=== PATIENT | female | born 1960 | race Caucasian/White ===

== ENCOUNTER 2020-04-30 06:29 | Outpatient (REF) | payer OTHER, SELFPAY ==
[2020-04-30 07:04] LABS: MANUAL DIFF FLAG NO
[2020-04-30 07:27] LABS: Basophils Percent Auto 0.5 % (0-2); Eosinophils Absolute Auto 0.1 X10*3/uL (0.0-0.4); Eosinophils Percent Auto 3.2 % (0-4); Hematocrit 43.6 % (37-47); Hemoglobin 14.1 g/dl (12.0-16.0); Imm Gran Abs Auto 0.01 X10*3/uL (0.00-0.03); Imm Gran Pct Auto 0.3 % (0.0-0.4); Lymphocytes Absolute Auto 1.6 X10*3/uL (1.2-4.9); Lymphocytes Percent Auto 41.9 % (20-40); Mean Corpuscular HGB Conc 32.3 g/dl (31.0-35.0); Mean Corpuscular Volume 89.7 fL (80-98); Mean Platelet Volume 9.6 fL (9.4-12.3); Monocytes Absolute Auto 0.4 X10*3/uL (0.1-1.2); Monocytes Percent Auto 9.9 % (2-11); Neutrophils Absolute Auto 1.7 X10*3/uL (2.0-8.3); Neutrophils Percent Auto 44.2 % (45-73); Platelet Count 234 X10*3/uL (160-400); Red Blood Count 4.86 X10*6/uL (4.20-5.50); Red Cell Distribution Width 13.2 % (11.0-16.0); White Blood Count 3.8 X10*3/uL (4.8-10.8)
[2020-04-30 07:50] LABS: Anion Gap 12 (12-20); Blood Urea Nitrogen 12 mg/dL (9-16); Calcium 9.1 mg/dL (8.4-10.2); Carbon Dioxide 28 mmol/L (22-29); Chloride 106 mmol/L (96-108); Cholesterol 194 mg/dL; Estimated Glomerular Filt Rate > 60; Glucose Fasting 96 mg/dL (60-99); HDL Cholesterol 98 mg/dL; LDL Cholesterol Calculated 87 mg/dl; Potassium 4.6 mmol/l (3.3-5.1); Sodium 141 mmol/L (135-145); Triglycerides 45 mg/dL
== END 2020-04-30 06:30 | disposition home or self-care (01) ==
LOC: HO.LAB 06:29
PROVIDERS: Visit Provider Nurse Practitioner Family
DX: R21 Rash and other nonspecific skin eruption (principal); Z86.39 Personal history of other endocrine, nutritional and metabolic disease
CPT/HCPCS: 36415; 80048; 80061; 85025

== ENCOUNTER 2020-06-07 08:02 | Outpatient (REF) | payer OTHER, SELFPAY ==
--- NOTE | 2020-06-07 08:10 | ECG_ITS ---
Test Reason : CP Blood Pressure : / mmHG Vent. Rate : 080 BPM Atrial Rate : 080 BPM P-R Int : 144 ms QRS Dur : 078 ms QT Int : 362 ms P-R-T Axes : 078 059 069 degrees QTc Int : 417 ms Normal sinus rhythm Right atrial enlargement Borderline ECG No previous ECGs available Referred By: Neida Black Electronically Signed By:JAZMÍN RANGEL MD
== END 2020-06-07 08:03 | disposition home or self-care (01) ==
LOC: HO.LAB 08:02
PROVIDERS: PCP Internal Medicine; Visit Provider Internal Medicine
DX: R07.89 Other chest pain (principal)
CPT/HCPCS: 93005

== ENCOUNTER 2020-06-15 07:08 | Outpatient (REF) | payer OTHER, SELFPAY ==
[2020-06-15 07:56] LABS: MANUAL DIFF FLAG NO
[2020-06-15 08:02] LABS: Basophils Percent Auto 0.9 % (0-2); Eosinophils Absolute Auto 0.1 X10*3/uL (0.0-0.4); Eosinophils Percent Auto 3.6 % (0-4); Hematocrit 42.2 % (37-47); Hemoglobin 13.7 g/dl (12.0-16.0); Imm Gran Abs Auto 0.01 X10*3/uL (0.00-0.03); Imm Gran Pct Auto 0.3 % (0.0-0.4); Lymphocytes Absolute Auto 1.2 X10*3/uL (1.2-4.9); Lymphocytes Percent Auto 37.6 % (20-40); Mean Corpuscular HGB Conc 32.5 g/dl (31.0-35.0); Mean Corpuscular Hemoglobin 28.9 pg (27.0-33.0); Monocytes Absolute Auto 0.3 X10*3/uL (0.1-1.2); Monocytes Percent Auto 9.7 % (2-11); Neutrophils Absolute Auto 1.6 X10*3/uL (2.0-8.3); Neutrophils Percent Auto 47.9 % (45-73); Platelet Count 220 X10*3/uL (160-400); Red Blood Count 4.74 X10*6/uL (4.20-5.50); Red Cell Distribution Width 12.9 % (11.0-16.0); White Blood Count 3.3 X10*3/uL (4.8-10.8)
[2020-06-15 08:28] LABS: Alanine Aminotransferase 24 U/L (0-31); Albumin Level 4.4 g/dL (3.5-5.0); Alkaline Phosphatase 77 U/L (39-117); Anion Gap 12 (12-20); Aspartate Amino Transferase 22 U/L (5-31); Bilirubin Total 0.8 mg/dL (0.0-1.0); Blood Urea Nitrogen 14 mg/dL (9-16); Calcium 9.5 mg/dL (8.4-10.2); Carbon Dioxide 28 mmol/L (22-29); Chloride 106 mmol/L (96-108); Estimated Glomerular Filt Rate > 60; Glucose Fasting 95 mg/dL (60-99); Sodium 141 mmol/L (135-145); Total Protein 7.1 g/dL (6.5-8.0)
[2020-06-18 07:12] LABS: Vitamin D 25-OH, D2 <4 ng/mL; Vitamin D 25-OH, D3 25 ng/mL; Vitamin D 25-OH, Total 25 ng/mL (30-100)
[2020-06-21 04:58] LABS: Folate 18.4 ng/mL (> or = 4.0); Vitamin B12 658 pg/mL (200-900)
== END 2020-06-15 07:09 | disposition home or self-care (01) ==
LOC: HO.LAB 07:08
PROVIDERS: PCP Internal Medicine; Visit Provider Internal Medicine
DX: R42 Dizziness and giddiness (principal); R53.82 Chronic fatigue, unspecified; E55.9 Vitamin D deficiency, unspecified
CPT/HCPCS: 36415; 80053; 82306; 82607; 82746; 84443; 85025

== ENCOUNTER 2020-10-18 08:01 | Outpatient (REF) | payer OTHER, SELFPAY ==
--- NOTE | ~2020-10-18 | MM_ITS ---
EXAMINATION: MM SCREENING DIGITAL BREAST TOMOSYNTHESIS, BILATERAL CLINICAL INFORMATION: Screening. Asymptomatic. The lifetime risk of breast cancer based on the Tyrer-Cuzick Model is 12.0%. COMPARISON: Mammography: January 30, 2016 and studies dating back to August 03, 2009 TECHNIQUE: Digital breast tomosynthesis is performed in both the craniocaudal and mediolateral oblique views along with computer-aided detection (CAD). Synthesized 2D images are generated from the tomosynthesis. FINDINGS: There are scattered areas of fibroglandular density (ACR BI-RADS breast composition Category b). There are no significant masses, abnormal calcifications, or other abnormalities. MM/MM tomosynthesis screening BI IMPRESSION: There are no significant changes from prior study. ASSESSMENT: BI-RADS 1: Negative RECOMMENDATION: Routine annual mammography screening. This patient's information was entered into a reminder system with a target due date for their next mammogram.
== END 2020-10-18 08:02 | disposition home or self-care (01) ==
LOC: HO.MAMMO 08:01
PROVIDERS: PCP Internal Medicine; Visit Provider Obstetrics & Gynecology
DX: Z12.31 Encounter for screening mammogram for malignant neoplasm of breast (principal)
CPT/HCPCS: 77063; 77067

== ENCOUNTER 2020-12-10 12:05 | Outpatient (REF) | payer OTHER, SELFPAY ==
[2020-12-10 12:57] LABS: Hematocrit 41.8 % (37-47); Hemoglobin 13.6 g/dl (12.0-16.0); Mean Corpuscular HGB Conc 32.5 g/dl (31.0-35.0); Mean Corpuscular Hemoglobin 28.9 pg (27.0-33.0); Mean Corpuscular Volume 88.9 fL (80-98); Mean Platelet Volume 9.5 fL (9.4-12.3); Platelet Count 224 X10*3/uL (160-400); Red Cell Distribution Width 13.5 % (11.0-16.0); White Blood Count 5.2 X10*3/uL (4.8-10.8)
[2020-12-10 13:13] LABS: Alanine Aminotransferase 24 U/L (0-31); Albumin Level 4.5 g/dL (3.5-5.0); Alkaline Phosphatase 74 U/L (39-117); Anion Gap 12 (12-20); Aspartate Amino Transferase 22 U/L (5-31); Bilirubin Direct 0.2 mg/dL (0.0-0.5); Bilirubin Total 0.3 mg/dL (0.0-1.0); Blood Urea Nitrogen 18 mg/dL (9-16); Calcium 9.4 mg/dL (8.4-10.2); Carbon Dioxide 27 mmol/L (22-29); Chloride 104 mmol/L (96-108); Estimated Glomerular Filt Rate > 60; Glucose Random 87 mg/dL (60-115); Iron 73 mcg/dL (30-160); Percent Iron Saturation 21 % (15-50); Potassium 4.6 mmol/L (3.3-5.1); Sodium 138 mmol/L (135-145); Total Iron Binding Capacity 353 mcg/dL (228-428); Total Protein 7.1 g/dL (6.5-8.0); Unsaturated Iron Binding 280 ug/dL
== END 2020-12-10 12:06 | disposition home or self-care (01) ==
LOC: HO.LAB 12:05
PROVIDERS: PCP Internal Medicine; Visit Provider Physician Assistant
DX: R42 Dizziness and giddiness (principal); I10 Essential (primary) hypertension; D72.819 Decreased white blood cell count, unspecified; D50.9 Iron deficiency anemia, unspecified
CPT/HCPCS: 36415; 80048; 80076; 83540; 85027

== ENCOUNTER → 2021-01-08 11:15 | Outpatient (REF) | payer OTHER, SELFPAY ==
--- NOTE | 2021-01-08 11:19 | CA_ITS ---
Transthoracic Echocardiogram Patient (Last, First, Middle): Shaniqua Prather, Gender: Female Date of : 1960 Age: 60 Procedure Date: 01/08/2021 Procedure Type: Transthoracic Echocardiogram Location: OP Height: 162.56 cm Weight: 51.71 kg BSA: 1.54 m2 Heart Rate: bpm BP: 120 / 60 mmHg Resource Management Planner: LILLY Pearce MD: Ibrahima Espinal PA-C Recreation Therapy Aides Teacher: Alex Garcia MD Symptoms: I51.7 - Cardiomegaly Study Quality: Fair ECG Rhythm: Sinus Conclusions: - Essentially normal study Findings Left Ventricle Normal left ventricular size, thickness, and systolic function. The visually estimated ejection fraction is between 60-65%. Diastolic function is normal for age. Measured global longitudinal endocardial strain is-17.4%, within normal limits. Right Ventricle Normal right ventricular cavity size and systolic function. Atria Both atria are normal in size. There is no evidence of interatrial shunt. Aortic Valve The aortic valve structure and function is likely normal. There is no aortic valve stenosis. There is no aortic valve regurgitation. Mitral Valve Likely normal mitral valve structure and function. There is trace mitral valve regurgitation. There is no mitral valve stenosis. Pulmonic Valve The pulmonic valve was not well visualized. Tricuspid Valve Likely normal tricuspid valve structure and function. There is trace tricuspid valve regurgitation. The right ventricular systolic pressure is normal. The right ventricular systolic pressure is 21 mmHg. Normal right atrial pressure. There is no evidence of pulmonary hypertension. Great Vessels All visible segments of the aorta are normal in size. The pulmonary artery was not well visualized. Venous The inferior vena cava is normal in size and collapses greater than 50% with inspiration. Pericardium/Pleural There is no evidence of pericardial effusion. Prior Study Comparison No prior study available for comparison. Measurements 2D Linear Measurements IVSd: 0.67 0.6-0.9/0.6-1.0 cm LVIDd: 3.87 3.9-5.3/4.2-5.9 cm LVIDd Index: 2.51 2.4-3.2/2.2-3.1 cm/m2 LVIDs: 2.75 2.0-3.6 cm LVPWd: 0.66 0.7-1.1 cm Ao Root: 3.00 2.1-3.5 cm LA Diam: 2.50 2.7-3.8/3.0-4.0 cm LAIDs Index: 1.62 1.5-2.3 cm/m2 LV Mass: 86.46 67-162/88-224 g LV Mass Index: 56.14 43-95/49-115 g/m2 LVOT Diam: 2.10 3.0+(-)1.3 cm 2D Systolic Function EF 4C: 55.50 >55% EF 2C: 66.50 >55% EF BiP: 61.50 >55% Mitral Valve MV Pk E: 0.54 MV PK A: 0.39 MV Decel Time: 358.00 E/A: 1.40 E'Lateral: 12.00 E'Medial: 8.70 E/E' Med: 6.20 E/E' Lat: 4.50 PHT: 105.00 MVA PHT: 2.10 Decel [place]: 1.49 Aortic Valve AoV Pk Garry: 1.19 AoV Mn Garry: 0.85 AoV VTI: 0.24 AoV Pk Grad: 6.00 Aov Mn Grad: 3.00 DOMINIQUE Cont.VTI: 2.50 LVOT LVOT Pk Garry: 0.72 LVOT Mn Garry: 0.49 LVOT VTI: 0.18 LVOT Pk Grad: 2.00 LVOT Mn Grad: 1.00 LVOT Diam: 2.10 LVOT Area: 3.46 Diastolic Function MV Pk E: 0.54 MV Pk A: 0.39 E/A: 1.40 E'Medial: 8.70 E/E' Med: 6.20 E' Laterial: 12.00 E/E' Lat: 4.50 Right Ventricle TAPSE (mm): 2.15 TVS' Garry: 11.00 Tricuspid Valve TR Pk Garry: 2.13 TR Pk Grad: 18.00 RA Press: 3.00 RVSP: 21.00 Great Vessels Aorta Ao Root-2D: 3.00 2.0-3.7 cm Ao Asc: 3.00 2.1-3.4 cm Ao Arch: 2.80 Updated in Other Vendor System with Status of Final Alex Garcia MD electronically signed on 01/08/2021 1:17:51 PM with status of Final
== END ==
LOC: HO.CARD 11:15
PROVIDERS: Visit Provider Physician Assistant
DX: I51.7 Cardiomegaly (principal)
CPT/HCPCS: 93306

== ENCOUNTER → 2021-01-16 09:02 | Outpatient (BNVA) | payer OTHER, SELFPAY | PROVIDERS: PCP Internal Medicine; Visit Provider Internal Medicine ==

== ENCOUNTER → 2021-06-30 09:13 | Outpatient (REF) | payer OTHER, SELFPAY ==
--- NOTE | 2021-06-30 09:24 | ECG_ITS ---
Test Reason : CP Blood Pressure : / mmHG Vent. Rate : 074 BPM Atrial Rate : 074 BPM P-R Int : 154 ms QRS Dur : 070 ms QT Int : 378 ms P-R-T Axes : 078 046 063 degrees QTc Int : 419 ms Normal sinus rhythm Normal ECG When compared with ECG of 07-JUN-2020 08:19, No significant change was found Referred By: Neida Black Electronically Signed By:JAZMÍN RANGEL MD
[2021-06-30 10:44] LABS: Alanine Aminotransferase 19 U/L (0-31); Albumin Level 4.2 g/dL (3.5-5.0); Alkaline Phosphatase 74 U/L (39-117); Anion Gap 10 (12-20); Aspartate Amino Transferase 21 U/L (5-31); Bilirubin Total 0.5 mg/dL (0.0-1.0); Blood Urea Nitrogen 10 mg/dL (9-16); Calcium 9.2 mg/dL (8.4-10.2); Carbon Dioxide 26 mmol/L (22-29); Chloride 106 mmol/L (96-108); Cholesterol 168 mg/dL; Estimated Glomerular Filt Rate > 60; Glucose Fasting 89 mg/dL (60-99); HDL Cholesterol 82 mg/dL; LDL Cholesterol Calculated 80 mg/dl; Potassium 4.3 mmol/L (3.3-5.1); Sodium 138 mmol/L (135-145); Total Protein 6.8 g/dL (6.5-8.0); Triglycerides 32 mg/dL
[2021-06-30 11:00] LABS: Thyroid Stimulating Hormone 1.54 uIU/mL (0.32-4.0)
[2021-07-04 01:17] LABS: Vitamin D 25-OH, D2 <4 ng/mL; Vitamin D 25-OH, D3 20 ng/mL; Vitamin D 25-OH, Total 20 ng/mL (30-100)
== END ==
LOC: HO.CARD 09:13
PROVIDERS: PCP Internal Medicine; Visit Provider Internal Medicine
DX: R07.9 Chest pain, unspecified (principal); E78.5 Hyperlipidemia, unspecified; E55.9 Vitamin D deficiency, unspecified
CPT/HCPCS: 36415; 80053; 80061; 82306; 84443; 93005

== ENCOUNTER → 2021-07-22 08:06 | Outpatient (REF) | payer OTHER, SELFPAY ==
--- NOTE | 2021-07-22 08:10 | CA_ITS ---
Acquisition Time: 2021-07-22 08:24:02 Total Exercise Time: 00:08:25 Test Indications: CP Medications: SEE CHART Protocol: FELECIA Max HR: 151 BPM 93% of Pred: 161 BPM Max BP: 122/060 mmHG Max Work Load: 10.1 METS Exercise stress test with exercise 8 min 25 sec of Felecia protocol, achieving 93% MPHR, 10.1 METS, without anginal symptoms, with isolated PAC and PVC, with normotensive response to exercise, without EKG changes meeting criteria for ischemia. Test reviewed with Dr Horvath. Referred By: Neida Black Overread By: GARRETT PARIKH
== END ==
LOC: HO.CARD 08:06
PROVIDERS: Visit Provider Internal Medicine
DX: R07.9 Chest pain, unspecified (principal)
CPT/HCPCS: 93017

== ENCOUNTER 2021-09-18 06:40 | Outpatient (REF) | payer OTHER, SELFPAY ==
[2021-09-18 07:26] LABS: Hematocrit 43.9 % (37.0-47.0); Hemoglobin 14.2 g/dl (12.0-16.0); Mean Corpuscular HGB Conc 32.3 g/dl (31.0-35.0); Mean Corpuscular Hemoglobin 28.9 pg (27.0-33.0); Mean Corpuscular Volume 89.2 fL (80.0-98.0); Mean Platelet Volume 9.9 fL (9.4-12.3); Platelet Count 208 X10*3/uL (160-400); Red Blood Count 4.92 X10*6/uL (4.20-5.50); Red Cell Distribution Width 13.2 % (11.0-16.0); White Blood Count 3.5 X10*3/uL (4.8-10.8)
[2021-09-18 07:34] LABS: Estimated Average Glucose 108 mg/dL; Hemoglobin A1c % 5.4 %
[2021-09-18 07:56] LABS: Anion Gap 13 (12-20); Blood Urea Nitrogen 13 mg/dL (9-16); Calcium 9.9 mg/dL (8.4-10.2); Carbon Dioxide 26 mmol/L (22-29); Chloride 107 mmol/L (96-108); Estimated Glomerular Filt Rate > 60; Glucose Random 95 mg/dL (60-115); Potassium 4.9 mmol/L (3.3-5.1); Sodium 141 mmol/L (135-145)
== END 2021-09-18 06:41 | disposition home or self-care (01) ==
LOC: HO.LAB 06:40
PROVIDERS: PCP Internal Medicine; Visit Provider Nurse Practitioner Family
DX: R73.01 Impaired fasting glucose (principal); R42 Dizziness and giddiness
CPT/HCPCS: 36415; 80048; 83036; 85027

== ENCOUNTER 2021-11-27 08:41 | Outpatient (REF) | payer OTHER, SELFPAY ==
[2021-11-27 09:04] LABS: MANUAL DIFF FLAG NO
[2021-11-27 09:42] LABS: Basophils Percent Auto 0.6 % (0-2); Eosinophils Absolute Auto 0.1 X10*3/uL (0.0-0.4); Eosinophils Percent Auto 2.2 % (0-4); Hematocrit 41.8 % (37.0-47.0); Hemoglobin 13.6 g/dl (12.0-16.0); Imm Gran Abs Auto 0.01 X10*3/uL (0.00-0.03); Imm Gran Pct Auto 0.3 % (0.0-0.4); Lymphocytes Absolute Auto 1.2 X10*3/uL (1.2-4.9); Lymphocytes Percent Auto 33.6 % (20-40); Mean Corpuscular HGB Conc 32.5 g/dl (31.0-35.0); Mean Corpuscular Hemoglobin 28.6 pg (27.0-33.0); Mean Corpuscular Volume 87.8 fL (80.0-98.0); Mean Platelet Volume 9.2 fL (9.4-12.3); Monocytes Absolute Auto 0.5 X10*3/uL (0.1-1.2); Monocytes Percent Auto 12.4 % (2-11); Neutrophils Absolute Auto 1.9 x10*3/uL (2.0-8.3); Neutrophils Percent Auto 50.9 % (45-73); Platelet Count 244 X10*3/uL (160-400); Red Blood Count 4.76 X10*6/uL (4.20-5.50); Red Cell Distribution Width 13.6 % (11.0-16.0); White Blood Count 3.6 X10*3/uL (4.8-10.8)
[2021-11-27 10:19] LABS: Anion Gap 14 (12-20); Blood Urea Nitrogen 13 mg/dL (9-16); Carbon Dioxide 27 mmol/L (22-29); Chloride 105 mmol/L (96-108); Estimated Glomerular Filt Rate > 60; Potassium 4.9 mmol/L (3.3-5.1); Sodium 141 mmol/L (135-145)
[2021-11-27 10:20] LABS: Alanine Aminotransferase 39 U/L (0-31); Albumin Level 4.5 g/dL (3.5-5.0); Alkaline Phosphatase 70 U/L (39-117); Aspartate Amino Transferase 27 U/L (5-31); Bilirubin Total 0.7 mg/dL (0.0-1.0); Calcium 9.4 mg/dL (8.4-10.2); Cholesterol 183 mg/dL; Glucose Fasting 91 mg/dL (60-99); HDL Cholesterol 80 mg/dL; LDL Cholesterol Calculated 97 mg/dl; Total Protein 7.1 g/dL (6.5-8.0); Triglycerides 33 mg/dL
== END 2021-11-27 08:42 | disposition home or self-care (01) ==
LOC: HO.LAB 08:41
PROVIDERS: PCP Internal Medicine; Visit Provider Internal Medicine
DX: Z00.00 Encounter for general adult medical examination without abnormal findings (principal); E78.5 Hyperlipidemia, unspecified; E55.9 Vitamin D deficiency, unspecified; D72.819 Decreased white blood cell count, unspecified
CPT/HCPCS: 36415; 80053; 80061; 82306; 85025

== ENCOUNTER 2021-12-05 07:24 | Outpatient (REF) | payer OTHER, SELFPAY ==
--- NOTE | ~2021-12-05 | MM_ITS ---
EXAMINATION: MM SCREENING DIGITAL BREAST TOMOSYNTHESIS, BILATERAL CLINICAL INFORMATION: Screening. Asymptomatic. The lifetime risk of breast cancer based on the Tyrer-Cuzick Model is 8%. COMPARISON: Mammography: 10/18/2020, 01/30/2016, 01/18/2015 TECHNIQUE: Digital breast tomosynthesis is performed in both the craniocaudal and mediolateral oblique views along with computer-aided detection (CAD). Synthesized 2D images are generated from the tomosynthesis. FINDINGS: There are scattered areas of fibroglandular density (ACR BI-RADS breast composition Category b). There are no significant masses, abnormal calcifications, or other abnormalities. Parenchymal pattern is similar to prior studies. Minor bilateral parenchymal asymmetries are stable. There is no developing density. No interval mass or architectural abnormality. The skin contours are smooth. No significant changes from prior exams. MM/MM tomosynthesis screening BI IMPRESSION: No mammographic evidence of malignancy. ASSESSMENT: BI-RADS 2: Benign RECOMMENDATION: Routine annual mammography screening. This patient's information was entered into a reminder system with a target due date for their next mammogram.
== END 2021-12-05 07:25 | disposition home or self-care (01) ==
LOC: HO.MAMMO 07:24
PROVIDERS: PCP Internal Medicine; Visit Provider Internal Medicine
DX: Z12.31 Encounter for screening mammogram for malignant neoplasm of breast (principal)
CPT/HCPCS: 77063; 77067

== ENCOUNTER 2021-12-18 06:58 | Outpatient (REF) | payer OTHER, SELFPAY ==
[2021-12-18 07:57] LABS: Alanine Aminotransferase 21 U/L (0-31); Albumin Level 4.3 g/dL (3.5-5.0); Alkaline Phosphatase 69 U/L (39-117); Aspartate Amino Transferase 22 U/L (5-31); Bilirubin Direct 0.3 mg/dL (0.0-0.5); Bilirubin Total 0.8 mg/dL (0.0-1.0); Total Protein 6.9 g/dL (6.5-8.0)
== END 2021-12-18 06:59 | disposition home or self-care (01) ==
LOC: HO.LAB 06:58
PROVIDERS: PCP Internal Medicine; Visit Provider Internal Medicine
DX: R74.01 Elevation of levels of liver transaminase levels (principal)
CPT/HCPCS: 36415; 80076

== ENCOUNTER 2022-04-01 13:10 | Outpatient (REF) | payer OTHER, SELFPAY ==
[2022-04-01 14:51] LABS: Alanine Aminotransferase 23 U/L (0-31); Albumin Level 4.6 g/dL (3.5-5.0); Alkaline Phosphatase 78 U/L (39-117); Aspartate Amino Transferase 21 U/L (5-31); Bilirubin Direct 0.3 mg/dL (0.0-0.5); Bilirubin Total 0.6 mg/dL (0.0-1.0); Lipase 19 U/L (8-78); Total Protein 7.2 g/dL (6.5-8.0)
[2022-04-02 19:48] LABS: Transglutaminase Ab IgG <1.0 U/mL; Transglutaminase IgA <1.0 U/mL
== END 2022-04-01 13:11 | disposition home or self-care (01) ==
LOC: HO.LAB 13:10
PROVIDERS: PCP Internal Medicine; Visit Provider Nurse Practitioner Family
DX: R10.9 Unspecified abdominal pain (principal)
CPT/HCPCS: 36415; 80076; 83690; 86364

== ENCOUNTER 2022-04-02 12:01 | Outpatient (REF) | payer OTHER, SELFPAY ==
[2022-04-09 12:58] LABS: Pancreatic Elastase-1 >500 mcg/g
== END 2022-04-02 12:02 | disposition home or self-care (01) ==
LOC: HO.LNP 12:01
PROVIDERS: Visit Provider Nurse Practitioner Family
DX: R10.9 Unspecified abdominal pain (principal)
CPT/HCPCS: 82656

== ENCOUNTER 2022-05-11 07:21 | Outpatient (REF) | payer OTHER, SELFPAY ==
--- NOTE | ~2022-05-11 | US_ITS ---
EXAMINATION: US ABDOMEN COMPLETE CLINICAL INFORMATION: Unspecified abdominal pain. COMPARISON: CT abdomen and pelvis with contrast 07/13/2016. TECHNIQUE: Real-time imaging of the abdominal viscera. FINDINGS: PANCREAS: Visualized pancreas is normal. ABDOMINAL AORTA: The proximal, mid, and distal segments are normal in caliber. INFERIOR VENA CAVA: Visualized portions are normal. LIVER: Normal. The liver is normal in size. The liver contour is normal. Parenchymal echogenicity is normal. No focal hepatic lesion. There is no intrahepatic biliary duct dilatation seen. GALLBLADDER: Normal. The gallbladder is physiologically distended without evidence of stones, sludge, polyps, wall thickening or pericholecystic fluid. COMMON BILE DUCT: Normal in caliber measuring 0.2 cm in diameter. RIGHT KIDNEY: Incidentally noted right extrarenal pelvis. No hydronephrosis. No renal calculi or focal parenchymal lesions. The kidney measures 9.4 cm in maximum dimension. LEFT KIDNEY: Normal. No hydronephrosis. No renal calculi or focal parenchymal lesions. The kidney measures 9.6 cm in maximum dimension. SPLEEN: Normal. The spleen measures 7.8 cm in maximum dimension. FREE FLUID: None. US/US abdomen complete IMPRESSION: No etiology for abdominal pain identified.
== END 2022-05-11 07:22 | disposition home or self-care (01) ==
LOC: HO.US 07:21
PROVIDERS: PCP Internal Medicine; Visit Provider Nurse Practitioner Family
DX: R10.9 Unspecified abdominal pain (principal)
CPT/HCPCS: 76700

== ENCOUNTER → 2022-05-12 13:47 | Outpatient (BNVA) | payer OTHER, SELFPAY | PROVIDERS: PCP Internal Medicine; Visit Provider Nurse Practitioner Family | DX: R74.01 Elevation of levels of liver transaminase levels (principal) ==

== ENCOUNTER 2022-11-13 15:21 | Outpatient (AMB) | payer OTHER, SELFPAY ==
--- NOTE | 2022-11-13 15:25 | A.OFFVIS_ITS ---
Intake Vital Signs 11/13/22 15:26 Height 5 ft 4 in Weight 110 lb BMI 18.9 BP 105/60 Blood Pressure Location Lt brachial Position Sitting Pulse 73 Intake Visit Reasons: 6 months f/u re-discuss colonoscopy Intake Note: Patient follow up for re-discuss colonoscopy screening. Patient cc: dizziness and denies any other GI issues. Zigzag Elastic Attacher Required: No Accompanied by: Self / Same As Patient Allergies ciprofloxacin [Cipro] Allergy (Intermediate, Verified 11/13/22 15:25) numbness Sulfa (Sulfonamide Antibiotics) [SULFA (SULFONAMIDE ANTIBIOTICS)] Allergy (Intermediate, Verified 11/13/22 15:25) RASH HPI 6 months f/u re-discuss colonoscopy HPI Details LAST VISIT: Transaminitis Liver enzymes levels have normalized. Patient his change her diet. Her ultrasound was normal, showing normal liver for Abdominal pain Patient reports that she has been feeling better since she started low FODMAP diet. Patient can continue this diet. She states that she moves her bowels well. Denies any melena, hematochezia, unintentional weight loss or ribbon like stools. Abdominal bloating Occasional abdominal bloating, however patient reports that she is feeling much better since the last time I saw her. Diet helps. Patient had colonoscopy in August of 2013. No polyps found then. Patient should probably go for colonoscopy within the year. I will see her in 6 months, sooner on as needed basis. Will discuss going for colonoscopy done. Patient is agreeable to this plan and verbalizes understanding of instructions. She was given the opportunity to ask questions all questions answered. TODAY'S VISIT Patient is here today for follow-up. Patient reports that she has been feeling well for the most part. Patient denies any GI concerning symptoms. Reports that she moves her bowels well, denies melena, hematochezia, unintentional weight loss or ribbon like stools. Patient denies dyspepsia, dysphagia or odynophagia. Patient does however reports to be feeling dizzy occasionally in attached feeling of weakness. Patient does have a low blood pressure. Reports that she is good drinking enough water. Patient denies any shortness of breath, chest pain, presyncope or syncope. Patient reports to have good appetite. Patient denies skipping meals. ? [facility] Medical History Chest pain Chest wall pain Chronic fatigue Chronic leukopenia Dizziness History of high cholesterol Hypotension Rash and nonspecific skin eruption Surgical History H/O colonoscopy H/O resection of small bowel History of myomectomy History of reversal of tubal ligation History of tubal ligation Family History Father No problems noted. Mother Diabetes Breast cancer Maternal Grandmother Diabetes Cancer Sister Ovarian cancer Family/Other FH: mental illness Maternal Grandfather Myocardial infarction Paternal Grandfather Medical history unknown Paternal Grandmother No problems noted. 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 [employer] Current occupational exposures/hazards: No Cognitive needs: No Hearing needs: No Vision needs: Yes Review of Systems Const Reports fatigue, Reports weakness (Occasional with occasional dizziness), Denies weight gain and Denies weight loss ENT Reports no additional complaints, Denies dysphagia and Denies odynophagia Card Reports no additional complaints Resp Reports no additional complaints GI Denies abdominal pain, Denies belching, Denies melena, Denies bloating, Denies change in bowel habits, Denies dysphagia, Denies excessive flatus, Denies dyspepsia, Denies heartburn, Denies diarrhea, Denies loose stools, Denies nausea, Denies odynophagia and Denies vomiting Musc Reports no additional complaints Neuro Reports no additional complaints and Reports weakness (Occasional with occasional dizziness) Psych Reports no additional complaints Endo Reports no additional complaints and Reports fatigue Physical Exam Vital Signs: Last Vital Signs Pulse 73 11/13/22 15:26 BP 105/60 11/13/22 15:26 BMI result Body Mass Index 18.9 Const General: healthy appearing, no acute distress and well developed Nutritional Appearance: well nourished Orientation/consciousness: patient oriented x3 HEENT Head: Yes normal to inspection, Yes normocephalic and Yes atraumatic Face and sinus: Yes normal facial exam Mouth: Normal oral and palatal mucosa present Throat: Yes posterior oropharynx normal, Yes tonsils normal and Yes uvula midline Eyes General: appearance normal, both eyes and all related structures Neck Neck: Yes normal visual inspection, Yes full ROM and Yes trachea midline Thyroid: Thyroid normal Resp Effort & Inspection: normal respiratory effort, able to speak in complete sentences, no tracheal deviation and symmetric chest movement Auscultation: clear to auscultation bilaterally Cardio Rate: regular rate Heart sounds: S1 normal heart sound present and S2 normal heart sound present GI Inspection: Yes normal to inspection and No distended Palpation (GI): Soft to palpation, not firm, nontender and No hepatosplenomegaly present Auscultation: normal bowel sounds General: Yes no CVA tenderness Back/Spine/Pelvis Back: no CVA tenderness Skin General skin exam: elasticity normal, turgor normal and dry skin Neuro General: patient oriented x3, gait normal, moves all extremities and Normal light touch and pain sensation Psych Appearance: grossly normal Mental Status: mental status grossly normal Speech and movement: Normal speech and movement present Assessment & Plan Assessment & Plan (1) Dizziness: Code(s): R42 - Dizziness and giddiness Plan: Patient has normal blood pressure. Denies feeling dizzy today. Patient was encouraged to making sure that she drinks plenty fluids and eats more often. Will do A1c level check CMP, CBC, thyroid (2) Abdominal bloating: Code(s): R14.0 - Abdominal distension (gaseous) Plan: Patient reports that she feels better moves her bowels well. Denies any abdominal bloating. Patient will return in 5 weeks to discuss colonoscopy. Patient is agreeable to this plan and verbalizes understanding of instructions. She was given the opportunity to ask questions and all questions answered. Thank you for allowing me to participate in her care Orders: Orders Comprehensive Met. Panel 11/13/22 R42 - Dizziness and giddiness TSH reflex Free T4 11/13/22 R42 - Dizziness and giddiness Complete Blood Count no Diff 11/13/22 R42 - Dizziness and giddiness Hemoglobin A1c 11/13/22 R42 - Dizziness and giddiness Coding Level of Care Code Est Pt Level 3 (22589) Diagnoses Dizziness R42 Abdominal bloating R14.0 Time Spent (min) 30 Comment 20 minutes spent with patient and additional 15 minutes spent reviewing her records
[2022-11-13 15:26] VITALS: BP 105/60; PULSE 73; BMI 18.9
== END 2022-11-13 16:04 | disposition home or self-care (01) ==
PROVIDERS: Visit Provider Nurse Practitioner Family
DX: R42 Dizziness and giddiness (principal); R14.0 Abdominal distension (gaseous)
CPT/HCPCS: 99213

== ENCOUNTER 2022-11-13 15:21 | Outpatient (REF) | payer OTHER, SELFPAY ==
[2022-11-13 17:51] LABS: Hematocrit 43.4 % (37.0-47.0); Hemoglobin 14.2 g/dl (12.0-16.0); Mean Corpuscular HGB Conc 32.7 g/dl (31.0-35.0); Mean Corpuscular Volume 88.6 fL (80.0-98.0); Mean Platelet Volume 9.7 fL (9.4-12.3); Platelet Count 215 X10*3/uL (160-400); Red Cell Distribution Width 13.3 % (11.0-16.0); White Blood Count 5.1 X10*3/uL (4.8-10.8)
[2022-11-13 18:08] LABS: Estimated Average Glucose 103 mg/dL; Hemoglobin A1c % 5.2 %
[2022-11-13 18:28] LABS: Alanine Aminotransferase 22 U/L (0-31); Albumin Level 4.5 g/dL (3.5-5.0); Alkaline Phosphatase 82 U/L (39-117); Anion Gap 11 (12-20); Aspartate Amino Transferase 21 U/L (5-31); Bilirubin Total 0.3 mg/dL (0.0-1.0); Blood Urea Nitrogen 17 mg/dL (9-16); Calcium 9.7 mg/dL (8.4-10.2); Carbon Dioxide 27 mmol/L (22-29); Chloride 103 mmol/L (96-108); Estimated Glomerular Filt Rate > 60; Glucose Random 84 mg/dL (60-115); Potassium 4.4 mmol/L (3.3-5.1); Sodium 137 mmol/L (135-145); Total Protein 7.3 g/dL (6.5-8.0)
[2022-11-13 18:36] LABS: TSH reflex Free T4 1.55 uIU/mL (0.32-4.0)
== END 2022-11-13 15:22 | disposition home or self-care (01) ==
LOC: HO.LAB 15:21
PROVIDERS: PCP Internal Medicine; Visit Provider Nurse Practitioner Family
DX: R42 Dizziness and giddiness (principal); R53.1 Weakness
CPT/HCPCS: 36415; 80053; 83036; 84443; 85027

== ENCOUNTER 2022-12-09 08:04 | Outpatient (AMB) | payer OTHER, SELFPAY ==
[2022-12-09 08:09] VITALS: BP 104/58; PULSE 75; O2SAT 98; BMI 18.9
--- NOTE | 2022-12-09 08:09 | A.OFFPC_ITS ---
Vital Signs 12/09/22 08:09 Height 5 ft 4 in Weight 110 lb BMI 18.9 BP 104/58 L Blood Pressure Location Lt brachial Position Sitting Pulse 75 Pulse Source Pulse Oximeter Pulse Oximetry (%) 98 Oxygen Delivery Method Room Air Intake Visit Reasons: Annual Exam Director Recreation Required: No Accompanied by: Self / Same As Patient Allergies ciprofloxacin [Cipro] Allergy (Intermediate, Verified 12/09/22 08:33) numbness Sulfa (Sulfonamide Antibiotics) [SULFA (SULFONAMIDE ANTIBIOTICS)] Allergy (Intermediate, Verified 12/09/22 08:33) RASH Medication List - Last Reconciled 12/09/22 by Neida Black MD multivitamin 1 tab PO DAILY Tobacco use date assessed: 09/08/22 Dental Screening Dental Screen Date: 12/09/22 Did you have a dental visit in the last 12 months?: Yes Did you have a dental problem in the last 6 months where you did not have access to dental care?: No Was dental information given to patient?: Patient has dentist HPI HPI Comments History of Present Illness Details This is a 62-year-old female that comes for her physical exam. Last mammogram was November 2021 and I will order another mammogram. Last bone density was over 3 years ago and showed osteopenia at [facility]. I will repeat bone density. Last colonoscopy was over 10 years ago. She has not changed her diet in over a year and last lipid panel was within normal limits. Last labs were discussed and were within normal limits. No need to order labs at the moment. No chest pain or shortness of breath. Constipation has markedly improved with high-fiber diet. She will call [facility] for a Pap smear. [facility] Medical History (Updated 09/08/22 @ 09:02 by Neida Black MD) Chest pain Chest wall pain Chronic fatigue Chronic leukopenia Dizziness History of high cholesterol Hypotension Rash and nonspecific skin eruption Surgical History H/O colonoscopy H/O resection of small bowel History of myomectomy History of reversal of tubal ligation History of tubal ligation Family History Father No problems noted. Mother Diabetes Breast cancer Maternal Grandmother Diabetes Cancer Sister Ovarian cancer Family/Other FH: mental illness Maternal Grandfather Myocardial infarction Paternal Grandfather Medical history unknown Paternal Grandmother No problems noted. 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 1. Little interest or pleasure in doing things: not at all 2. Feeling down, depressed, or hopeless: not at all 3. Trouble falling or staying asleep, or sleeping too much: not at all 4. Feeling tired or having little energy: not at all 5. Poor appetite or overeating: not at all 6. Feeling bad about yourself - or that you are a failure or have let yourself or your family down: not at all 7. Trouble concentrating on things, such as reading the newspaper or watching television: not at all 8. Moving or speaking so slowly that other people could have noticed. Or the opposite - being so fidgety or restless that you have been moving around a lot more than usual: not at all 9. Thoughts that you would be better off or of hurting yourself in some way: not at all Total score: 0 Depression Screening Interpretation: Negative 39095 - PHQ-9 Billing: Yes Source: Developed by Drs. Herrera Rodriguez, Michelle Santiago, Liborio Dexter and colleagues, with an educational sheree from [employer]. Thrive Questionnaire Date Thrive assessed: 09/08/22 AUDIT C Alcohol Use Questionnaire (AUDIT-C) 1. How often do you have a drink containing alcohol?: Monthly or less 2. How many drinks containing alcohol do you have on a typical day when you are drinking?: 1 or 2 3. How often do you have six or more drinks on one occasion?: Never Total Score: 1 Score Reviewed/Action Taken: No NESSA-7 AMB Questionnaire NESSA-7 Date NESSA - 7 assessed: 09/08/22 Source: Developed by Drs. Herrera Rodriguez, Michelle Santiago, Liborio Dexter and colleagues, with an educational sheree from [employer]. Review of Systems Const All systems reviewed & are unremarkable except as noted in HPI and below Eyes Reports no additional complaints, Denies change in vision and Denies other visual disturbances Card Denies chest pain at rest, Denies chest pain with activity, Denies edema, Denies irregular heart rhythm, Denies claudication, Denies dyspnea, Denies dyspnea on exertion, Denies orthopnea, Denies paroxysmal nocturnal dyspnea and Denies slow heart rate Resp Denies cough, Denies dyspnea and Denies dyspnea on exertion GI Denies abdominal pain, Denies change in bowel habits, Denies excessive flatus, Denies nausea and Denies vomiting Denies urinary incontinence, Denies urinary hesitancy and Denies urinary urgency Musc Denies abnormal gait, Denies atrophy, Denies deformity and Denies limited range of motion Skin/Breast Denies bleeding lesions, Denies changing lesions and Denies rash Neuro Denies abnormal gait and Denies lack of coordination Physical exam (Primary Care) Vital Signs: Last Vital Signs Pulse 75 12/09/22 08:09 BP 104/58 L 12/09/22 08:09 Pulse Ox 98 12/09/22 08:09 Oxygen Delivery Method Room Air 12/09/22 08:09 BMI result Body Mass Index 18.9 Tobacco/Smoking Status: Tobacco use Status Tobacco use date assessed 09/08/22 12/09/22 08:12 Patient Tobacco Use Status Never used Tobacco 12/09/22 08:12 e-Cigarette/Vaping Use Never Used 12/09/22 08:12 PHQ-9: PHQ-9 Score PHQ-9: Total score 0 12/09/22 08:12 Depression Screening Interpretation: Negative Thrive Assessment: Date of Thrive Assessment Date Thrive assessed 09/08/22 12/09/22 08:12 Const Orientation/consciousness: patient oriented x3 HENMT Head: Yes normal to inspection, Yes normocephalic and Yes atraumatic Ears: external ears normal Eyes General: appearance normal, both eyes and all related structures Eyelids: Yes eyelids normal Conjunctivae: conjunctivae normal Neck Neck: Yes normal visual inspection and Yes supple Resp Effort & Inspection: normal respiratory effort Auscultation: clear to auscultation bilaterally Cardio Jugular venous distension: no JVD Rate: regular rate Rhythm: regular rhythm Heart sounds: S1 normal heart sound present and S2 normal heart sound present GI Inspection: Yes normal to inspection Palpation (GI): Soft to palpation and nontender Auscultation: normal bowel sounds Skin General skin exam: no rashes or lesions noted Neuro General: patient oriented x3 and no focal motor deficits Extrem General: Yes full ROM Psych Appearance: grossly normal Assessment and Plan Assessment & Plan (1) Physical exam: Code(s): Z00.00 - Encounter for general adult medical examination without abnormal findings Plan: Repeat in a year Orders: Orders XR DEXA axial skeleton Today N95.9 - Unspecified menopausal and perimenopausal disorder MM screening mammo BI Today Z12.31 - Encounter for screening mammogram for malignant neoplasm of breast Coding Level of Care Code Est Pt Prev Care 40-64y(10548) Diagnoses Physical exam Z00.00 Time Spent (min) 33
== END 2022-12-09 08:47 | disposition home or self-care (01) ==
PROVIDERS: PCP Internal Medicine; Visit Provider Internal Medicine
DX: Z00.00 Encounter for general adult medical examination without abnormal findings (principal)
CPT/HCPCS: 99396

== ENCOUNTER 2022-12-11 10:38 | Outpatient (AMB) | payer OTHER, SELFPAY ==
--- NOTE | 2022-12-11 10:52 | A.OFFVIS_ITS ---
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 Denies feeling dizzy today. Patient was encouraged to making sure that she drinks plenty fluids and eats more often. Will do A1c level check CMP, CBC, thyroid Abdominal bloating Patient reports that she feels better moves her bowels well. Denies any abdominal bloating. Patient will return in 5 weeks to discuss colonoscopy. Patient is agreeable to this plan and verbalizes understanding of instructions. She was given the opportunity to ask questions and all questions answered. ? Thank you for allowing me to participate in her care Plan Orders Orders Comprehensive Met. Panel 11/13/22 R42 TSH reflex Free T4 11/13/22 R42 Complete Blood Count no Diff 11/13/22 R42 Hemoglobin A1c 11/13/22 R42 TODAY'S VISIT: Patient is here today for follow-up and to discuss go went for colonoscopy. Patient denies any ill effects from anesthesia in the past. No history of sleep apnea. Not on any anticoagulation medication. All her blood work discussed with patient and normal. Patient denies any cardiac or respiratory symptoms. Patient had normal colonoscopy in 2013. Patient denies any melena, hematochezia, unintentional weight loss or ribbon like stools. Patient denies any dyspepsia, dysphagia or odynophagia. [facility] Medical History Chest pain Chest wall pain Chronic fatigue Chronic leukopenia Dizziness History of high cholesterol Hypotension Rash and nonspecific skin eruption Surgical History H/O colonoscopy H/O resection of small bowel History of myomectomy History of reversal of tubal ligation History of tubal ligation Family History Father No problems noted. Mother Diabetes Breast cancer Maternal Grandmother Diabetes Cancer Sister Ovarian cancer Family/Other FH: mental illness Maternal Grandfather Myocardial infarction Paternal Grandfather Medical history unknown Paternal Grandmother No problems noted. 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 Current occupational exposures/hazards: No Cognitive needs: No Hearing needs: No Vision needs: Yes Review of Systems Const Denies weight gain and Denies weight loss ENT Reports no additional complaints, Denies dysphagia and Denies odynophagia Card Reports no additional complaints Resp Reports no additional complaints GI Denies abdominal pain, Denies belching, Denies melena, Denies bloating, Denies change in bowel habits, Denies dysphagia, Denies excessive flatus, Denies dyspepsia, Denies heartburn, Denies diarrhea, Denies loose stools, Denies nausea, Denies odynophagia and Denies vomiting Musc Reports no additional complaints Neuro Reports no additional complaints Psych Reports no additional complaints Endo Reports no additional complaints Physical Exam Vital Signs: Last Vital Signs Pulse 79 12/11/22 10:53 BP 103/55 L 12/11/22 11:27 BMI result Body Mass Index 18.8 Const General: healthy appearing, no acute distress and well developed Nutritional Appearance: well nourished Orientation/consciousness: patient oriented x3 HEENT Head: Yes normal to inspection, Yes normocephalic and Yes atraumatic Face and sinus: Yes normal facial exam Mouth: Normal oral and palatal mucosa present Throat: Yes posterior oropharynx normal, Yes tonsils normal and Yes uvula midline Eyes General: appearance normal, both eyes and all related structures Neck Neck: Yes normal visual inspection, Yes full ROM and Yes trachea midline Thyroid: Thyroid normal Resp Effort & Inspection: normal respiratory effort, able to speak in complete sentences, no tracheal deviation and symmetric chest movement Auscultation: clear to auscultation bilaterally Cardio Rate: regular rate Heart sounds: S1 normal heart sound present and S2 normal heart sound present GI Inspection: Yes normal to inspection and No distended Palpation (GI): Soft to palpation, not firm, nontender and No hepatosplenomegaly present Auscultation: normal bowel sounds General: Yes no CVA tenderness Back/Spine/Pelvis Back: no CVA tenderness Skin General skin exam: elasticity normal, turgor normal and dry skin Neuro General: patient oriented x3 Psych Appearance: grossly normal Mental Status: mental status grossly normal Speech and movement: Normal speech and movement present Assessment & Plan Assessment & Plan (1) Screen for colon cancer: Code(s): Z12.11 - Encounter for screening for malignant neoplasm of colon Plan: Patient denies any cardiac or respiratory symptoms. No issues with anesthesia in the past. No history of sleep apnea. Not on any anticoagulation medication. Denies any infectious diseases in the past or present. Discussed with patient what to expect before during and after the procedure. Clear liquid diet and good bowel prep discussed with patient. I will see her after the procedure, sooner on as needed basis. Patient is agreeable to this plan and verbalizes understanding of instructions. She was given the opportunity to ask questions and all questions answered. Thank you for allowing me to participate in her care Medications: New bisacodyl (Dulcolax (bisacodyl)) take 2 tabs at noon the day before your colonoscopy 10 mg (2 x 5 mg) PO ONCE 2 tabs 0RF 1 day Z12.11 - Encounter for screening for malignant neoplasm of colon polyethylene glycol 3350 (Miralax) As directed by gastroenterology department at [facility] 238 grams PO ONCE 238 grams 0RF Z12.11 - Encounter for screening for malignant neoplasm of colon Coding Level of Care Code Est Pt Level 3 (50279) Diagnoses Screen for colon cancer Z12.11 Time Spent (min) 30 Comment 20 minutes spent with patient and additional 10 minutes spent reviewing her records
[2022-12-11 10:53] VITALS: BP 90/54; PULSE 79; BMI 18.8
[2022-12-11 11:27] VITALS: BP 103/55
== END 2022-12-11 11:43 | disposition home or self-care (01) ==
PROVIDERS: PCP Internal Medicine; Visit Provider Nurse Practitioner Family
DX: Z12.11 Encounter for screening for malignant neoplasm of colon (principal); Z01.818 Encounter for other preprocedural examination
CPT/HCPCS: 99213

== ENCOUNTER → 2022-12-11 10:38 | Outpatient (BNVA) | payer OTHER, SELFPAY | PROVIDERS: PCP Internal Medicine; Visit Provider Nurse Practitioner Family ==

== ENCOUNTER 2023-01-15 08:17 | Outpatient (REF) | payer OTHER, SELFPAY ==
--- NOTE | ~2023-01-15 | MM_ITS ---
EXAMINATION: MM SCREENING DIGITAL BREAST TOMOSYNTHESIS, BILATERAL CLINICAL INFORMATION: Screening. Asymptomatic. COMPARISON: Mammography: This study is compared with prior exams dating back to 2016. TECHNIQUE: Digital breast tomosynthesis is performed in both the craniocaudal and mediolateral oblique views along with computer-aided detection (CAD). Synthesized 2D images are generated from the tomosynthesis. FINDINGS: The breasts are heterogeneously dense, which may obscure small masses (ACR BI-RADS breast composition Category c). There is a retroareolar asymmetry for which additional mammographic imaging is advised. Sonography may be performed at the discretion of the diagnostic radiologist. In the right breast, there are no significant masses, abnormal calcifications, or other abnormalities. MM/MM tomosynthesis screening BI IMPRESSION: Left retroareolar asymmetry warrants additional mammographic imaging. No mammographic signs of malignancy right breast. ASSESSMENT: BI-RADS BI-RADS 0 - Incomplete: Needs additional Imaging. RECOMMENDATION: 1. Additional views of the left breast. 2. Targeted ultrasound if warranted after review of the additional views. 3. Radiology department staff will contact the patient for additional imaging. Additional Imaging required This examination should not preclude the clinical evaluation of a suspicious palpable abnormality. This patient's information was entered into a reminder system with a target due date for their next mammogram.
--- NOTE | ~2023-01-15 | MM_ITS ---
EXAMINATION: BONE DENSITOMETRY CLINICAL INDICATION: Menopause. COMPARISON: Baseline BD dated 05/10/2012. TECHNIQUE: Using a [employer] DXA System (software version: 13.1) manufactured by [employer], dual-energy x-ray absorptiometry was performed of the lumbar spine and left hip. The images are of good technical quality. Summary results are attached. FINDINGS: LEFT FEMUR, NECK: Current: BMD 0.721 g/cm2, Z-score -0.8, T-score -2.3, osteopenia. Baseline: BMD 0.918 g/cm2. LEFT FEMUR, TOTAL: Current: BMD 0.687 g/cm2, Z-score -1.3, T-score -2.5, osteoporosis, 25.9% decrease from baseline (<5% change is not significant). Baseline: BMD 0.927 g/cm2. AP SPINE L1-L4: Current: BMD 0.919 g/cm2, Z-score -0.5, T-score -2.2, osteopenia, 21.5% decrease from baseline (<5% change is not significant). Baseline: BMD 1.171 g/cm2. IDENTIFIED RISK FACTORS: Menopause, low body weight. HISTORY OF FRACTURE: None listed. MEDICATIONS: None listed. MM/XR DEXA axial skeleton IMPRESSION: 1. DIAGNOSIS: Osteoporosis based on the lowest T-score value of -2.5 in the total femur applying World Health Organization criteria. 2. 10-YEAR FRACTURE RISK PREDICTION, FRAX: According to the guidelines, FRAX calculation should only be performed on patients in the osteopenia bone density category. Therefore, FRAX was not performed on this patient. 3. Treatment Recommendations: NOF guidelines recommend consideration for treatment in postmenopausal women and men age 50 and older presenting with the following: -A hip or vertebral (clinical or morphometric) fracture. -T-score less than or equal to -2.5 at the femoral neck or spine after appropriate evaluation to exclude secondary causes. -Low bone mass at the hip or spine and a 10-year fracture probability by FRAX of greater than or equal to 3% for hip fracture or greater than or equal to 20% for major osteoporotic fracture based on the [place] adapted WHO algorithm. 4. Other Recommendations: All treatment decisions require clinical judgment and consideration of individual patient factors, including patient preferences, comorbidities, previous drug use, risk factors not captured in the FRAX model (e.g. frailty, falls, vitamin D deficiency, increased bone turnover, interval significant decline in bone density) and possible under or overestimation of fracture risk by FRAX. Additional medical evaluation for secondary cause of low bone mineral density may be appropriate. FUTURE SCAN RECOMMENDATION: People with diagnosed cases of osteoporosis or at high risk for fracture should have regular bone mineral density tests. For patients eligible for Medicare, routine testing is allowed once every 2 years. The testing frequency can be increased to one year for patients who have rapidly progressing disease, those who are receiving or discontinuing medical therapy to restore bone mass, or have additional risk factors.
== END 2023-01-15 08:18 | disposition home or self-care (01) ==
LOC: HO.MAMMO 08:17
PROVIDERS: PCP Internal Medicine; Visit Provider Internal Medicine
DX: Z12.31 Encounter for screening mammogram for malignant neoplasm of breast (principal); Z13.820 Encounter for screening for osteoporosis; Z78.0 Asymptomatic menopausal state
CPT/HCPCS: 77063; 77067; 77080

== ENCOUNTER → 2023-01-15 08:45 | Outpatient (BNV) | payer OTHER, SELFPAY | PROVIDERS: PCP Internal Medicine; Visit Provider Radiology Diagnostic Radiology | DX: Z12.31 Encounter for screening mammogram for malignant neoplasm of breast (principal) | CPT/HCPCS: 77063; 77067 ==

== ENCOUNTER 2023-02-10 08:13 | Outpatient (REF) | payer OTHER, SELFPAY ==
--- NOTE | ~2023-02-10 | MM_ITS ---
EXAMINATION: MM DIAGNOSTIC DIGITAL BREAST TOMOSYNTHESIS, LEFT CLINICAL INFORMATION: Callback for retroareolar asymmetry. COMPARISON: Mammography: 01/15/2023, and exams dating back to 2013. TECHNIQUE: Digital breast tomosynthesis is performed. 2D images are generated from the tomosynthesis. The following views are obtained: Left 3-D full-field mediolateral view, as well as a left 3-D spot compression MLO view. FINDINGS: There are scattered areas of fibroglandular density (ACR BI-RADS breast composition Category b). The retroareolar asymmetry seen on the left MLO projection does not persist on the mediolateral projection, and otherwise has a stable appearance from studies dating back to 07/10/2013. No correlate on the CC projection. Asymmetry in the left axillary tail region is also stable from those examinations. MM/MM tomosynthesis added views L IMPRESSION: No evidence of malignancy left breast. Left retroareolar asymmetry has been stable dating back to 2013, and is consistent with summation artifact of overlapping breast tissues. Recommend the patient return to routine screening mammography. ASSESSMENT: BI-RADS BI-RADS 1 - Negative RECOMMENDATION: 1 year F/U Results were provided to the patient at time of visit by the technologist. This patient's information was entered into a reminder system with a target due date for their next mammogram.
== END 2023-02-10 08:14 | disposition home or self-care (01) ==
LOC: HO.MAMMO 08:13
PROVIDERS: Visit Provider Internal Medicine
DX: N64.89 Other specified disorders of breast (principal)
CPT/HCPCS: 77061; 77065

== ENCOUNTER → 2023-02-10 08:30 | Outpatient (BNV) | payer OTHER, SELFPAY | PROVIDERS: Visit Provider Radiology Diagnostic Radiology | DX: R92.323 Mammographic fibroglandular density, bilateral breasts (principal) | CPT/HCPCS: 77061; 77065 ==

== ENCOUNTER 2023-04-08 10:10 | Outpatient (AMB) | payer OTHER, SELFPAY ==
[2023-04-08 10:14] VITALS: BP 110/80; PULSE 69; O2SAT 99; BMI 19.3
--- NOTE | 2023-04-08 10:14 | A.OFFPC_ITS ---
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 by: Self / Same As Patient Allergies ciprofloxacin [Cipro] Allergy (Intermediate, Verified 04/08/23 11:14) numbness Sulfa (Sulfonamide Antibiotics) [SULFA (SULFONAMIDE ANTIBIOTICS)] Allergy (Intermediate, Verified 04/08/23 11:14) RASH Medication List - Last Reconciled 04/08/23 by Danilo Thompson MD amoxicillin-pot clavulanate 875-125 mg 1 tab PO BID 7 days bisacodyl (Dulcolax (bisacodyl)) 10 mg (2 x 5 mg) PO ONCE 1 day polyethylene glycol 3350 (Miralax) 238 grams PO ONCE Tobacco use date assessed: 04/08/23 Dental Screening Dental Screen Date: 04/08/23 Did you have a dental visit in the last 12 months?: Yes Did you have a dental problem in the last 6 months where you did not have access to dental care?: No Was dental information given to patient?: Patient has dentist HPI ear drainage HPI Details Patient comes in today complaining of on and off yellowish drainage from both of her ears since last night Notes that the drainage seems slightly worse from the left ear and she reports experiencing some pain in her left ear as well States that she has psoriasis that also involves her ears, including the skin on her ear lobes and the conchae as well as the auditory canals Is seeing dermatology for this and was recently prescribed some topical cream the name of which she does not remember but she does not feel that it has helped much She denies any recent fever or sore throat; denies any recent cough or cold symptoms Denies any headaches or dizziness No other acute complaints or symptoms are noted [facility] Medical History Chest pain Hypotension Chest wall pain Chronic fatigue Dizziness Chronic leukopenia History of high cholesterol Rash and nonspecific skin eruption Surgical History H/O colonoscopy History of myomectomy H/O resection of small bowel History of reversal of tubal ligation History of tubal ligation Family History Father No problems noted. Mother Diabetes Breast cancer Maternal Grandmother Diabetes Cancer Sister Ovarian cancer Family/Other FH: mental illness Maternal Grandfather Myocardial infarction Paternal Grandfather Medical history unknown Paternal Grandmother No problems noted. 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 1. Little interest or pleasure in doing things: not at all 2. Feeling down, depressed, or hopeless: not at all 3. Trouble falling or staying asleep, or sleeping too much: not at all 4. Feeling tired or having little energy: not at all 5. Poor appetite or overeating: not at all 6. Feeling bad about yourself - or that you are a failure or have let yourself or your family down: not at all 7. Trouble concentrating on things, such as reading the newspaper or watching television: not at all 8. Moving or speaking so slowly that other people could have noticed. Or the opposite - being so fidgety or restless that you have been moving around a lot more than usual: not at all 9. Thoughts that you would be better off or of hurting yourself in some way: not at all Total score: 0 Depression Screening Interpretation: Negative Depression Screening Done: Yes 66452 - PHQ-9 Billing: Yes Source: Developed by Drs. Herrera Rodriguez, Michelle Santiago, Liborio Dexter and colleagues, with an educational sheree from [email or web address]. Thrive Questionnaire Date Thrive assessed: 04/08/23 I am a: Patient What is your living situation today?: I have a steady place to live Within the past 12 months, did the food you bought not last and you didn't have the money to get more?: Never true Within the past 12 months, did you worry whether your food would run out before you got money to buy more?: Never true Do you have trouble paying for medicines?: No Do you have trouble getting transportation to medical appointments?: No Do you have trouble paying your heating and electricity bill?: No Do you have trouble taking care of your child, family member or friend?: No Do you have trouble with day-to-day activities such as bathing, preparing meals, shopping, managing finances, etc.?: No Are you currently unemployed and looking for a job?: No Are you interested in more education?: No Please select the resources that you would like help with: None Currently or been in a relationship where the following occur: no concerns reported AUDIT C Alcohol Use Questionnaire (AUDIT-C) 1. How often do you have a drink containing alcohol?: Monthly or less 2. How many drinks containing alcohol do you have on a typical day when you are drinking?: 1 or 2 3. How often do you have six or more drinks on one occasion?: Never Total Score: 1 Score Reviewed/Action Taken: Yes NESSA-7 AMB Questionnaire NESSA-7 Date NESSA - 7 assessed: 04/08/23 Feeling nervous, anxious, or on edge: 0 = Not at all Not being able to stop or control worryin = Not at all Worrying too much about different things: 0 = Not at all Trouble relaxin = Not at all Being so restless that it is hard to sit still: 0 = Not at all Becoming easily annoyed or irritable: 0 = Not at all Feeling afraid as if something awful might happen: 0 = Not at all Total NESSA-7 score (0-4 normal; 5-9 mild; 10-14 moderate; 15-21 severe): 0 Source: Developed by Drs. Herrera Rodriguez, Michelle Santiago, Liborio Dexter and colleagues, with an educational sheree from [email or web address]. Review of Systems Const Denies chills, Denies fatigue, Denies fever(s) and Denies headache(s) ENT Denies dysphagia, Denies dizziness, Reports ear discharge (bilateral yellowish discharge at times since last night, worse in L ear), Reports otalgia (mild, bilaterally but worse in the left ear), Denies headache(s), Denies neck pain, Denies odynophagia and Denies sore throat Card Denies chest pain, Denies palpitations and Denies dyspnea Resp Denies cough and Denies dyspnea GI Denies abdominal pain, Denies constipation, Denies dysphagia, Denies heartburn, Denies diarrhea, Denies nausea, Denies odynophagia and Denies vomiting Denies difficulty voiding, Denies nocturia and Denies dysuria Musc Denies neck pain Neuro Denies dizziness and Denies headache(s) Endo Denies fatigue and Denies palpitations Physical exam (Primary Care) Vital Signs: Last Vital Signs Pulse 69 04/08/23 10:14 BP 110/80 04/08/23 10:14 Pulse Ox 99 04/08/23 10:14 Oxygen Delivery Method Room Air 04/08/23 10:14 BMI result Body Mass Index 19.3 Tobacco/Smoking Status: Tobacco use Status Tobacco use date assessed 04/08/23 04/08/23 10:20 Patient Tobacco Use Status Never used Tobacco 04/08/23 10:20 e-Cigarette/Vaping Use Never Used 04/08/23 10:20 PHQ-9: PHQ-9 Score PHQ-9: Total score 0 04/08/23 10:20 Depression Screening Interpretation: Negative Thrive Assessment: Date of Thrive Assessment Date Thrive assessed 04/08/23 04/08/23 10:20 Currently or been in a relationship where the following occur: no concerns reported Const Other: (+) scaling rash over the left ear lobe involving the lobule, helix, antihelix and the conchae just outside of the opening of the auditory canal; there is (+) cerumen in both ear canals but they are NOT impacted. There is (+) tenderness of the left auditory canal elicited on otoscopic exam of the left ear General: no acute distress and alert Neck Neck: Yes no lymphadenopathy and Yes supple Resp Auscultation: clear to auscultation bilaterally, no rales and no wheezes Cardio Rate: regular rate Rhythm: regular rhythm Heart sounds: no murmurs GI Palpation (GI): Soft to palpation, nontender and No hepatosplenomegaly present Extrem General: Yes no clubbing, cyanosis or edema Assessment and Plan Assessment & Plan (1) Left otitis externa: Code(s): H60.92 - Unspecified otitis externa, left ear Qualifiers: Otitis externa type: unspecified type Chronicity: acute Qualified Code(s): H60.502 - Unspecified acute noninfective otitis externa, left ear Plan: Will start patient empirically on Augmentin 875 mg BID x 7 days Have advised patient to be careful and not allow water to get into her ears as much as possible at least for the next few days to avoid aggravating her ear symptoms (2) Psoriasis: Code(s): L40.9 - Psoriasis, unspecified Plan: This appears to involve her left earlobe as well; may also presumably involve the auditory canals also Follow up with dermatology as scheduled - have instructed patient to check back with dermatology DOMINGO if she feels that her current topical Rx is not helping her much Plan To return as scheduled in November 2023 for her next annual physical examination with her PCP Medications: New amoxicillin-pot clavulanate 875-125 mg 1 tab PO BID 7 days 14 tabs 0RF Coding Level of Care Code Est Pt Level 3 (15305) Diagnoses Acute otitis externa of left ear, unspecified type H60.502 Otitis externa type: unspecified type Chronicity: acute Psoriasis L40.9
== END 2023-04-08 10:58 | disposition home or self-care (01) ==
PROVIDERS: PCP Internal Medicine; Visit Provider Internal Medicine
DX: H60.502 Unspecified acute noninfective otitis externa, left ear (principal); L40.9 Psoriasis, unspecified
CPT/HCPCS: 99213

== ENCOUNTER 2023-04-20 10:40 | Outpatient (AMB) | payer OTHER, SELFPAY ==
[2023-04-20 10:44] VITALS: BP 98/58; PULSE 80; BMI 19.6
--- NOTE | 2023-04-20 10:44 | A.OFFVIS_ITS ---
Intake Vital Signs 04/20/23 10:44 Height 5 ft 4 in Weight 114 lb 3.191 oz BMI 19.6 BP 98/58 L Blood Pressure Location Rt brachial Position Sitting Pulse 80 Pulse Source Pulse Oximeter Intake Visit Reasons: Osteoporosis Intake Note: New pt presents today for Osteoporosis consult. Referred by PCP Dr Lee. Cheese Packer Required: No Accompanied by: Self / Same As Patient Allergies ciprofloxacin [Cipro] Allergy (Intermediate, Verified 04/20/23 10:46) numbness Sulfa (Sulfonamide Antibiotics) [SULFA (SULFONAMIDE ANTIBIOTICS)] Allergy (Intermediate, Verified 04/20/23 10:46) RASH Medication List - Last Reconciled 04/20/23 by Belgica Younger MD HPI HPI Comments History of Present Illness Details This is a 62-year-old female who presents for evaluation of osteoporosis. Recent DEXA scan showed osteoporosis. Patient is asymptomatic. She is unaware of any family history of an autoimmune rheumatic disease. She reached menopause in her 50s. She denies history of ovarian surgery. COUNT INCLUDES [facility] Medical History Chest pain Hypotension Chest wall pain Chronic fatigue Dizziness Chronic leukopenia History of high cholesterol Rash and nonspecific skin eruption Surgical History H/O colonoscopy History of myomectomy H/O resection of small bowel History of reversal of tubal ligation History of tubal ligation Family History Father No problems noted. Mother Diabetes Breast cancer Maternal Grandmother Diabetes Cancer Sister Ovarian cancer Family/Other FH: mental illness Maternal Grandfather Myocardial infarction Paternal Grandfather Medical history unknown Paternal Grandmother No problems noted. 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 [employer] Current occupational exposures/hazards: No Cognitive needs: No Hearing needs: No Vision needs: Yes Review of Systems Musc Reports no additional complaints and Denies joint swelling Physical Exam Vital Signs: Last Vital Signs Pulse 80 04/20/23 10:44 BP 98/58 L 04/20/23 10:44 BMI result Body Mass Index 19.6 Const General: cooperative, healthy appearing and comfortable Nutritional Appearance: average body habitus Orientation/consciousness: patient oriented x3 Limitations: no limitations HEENT Head: Yes normocephalic and Yes atraumatic Mouth: moist mucous membranes Resp Effort & Inspection: normal respiratory effort and able to speak in complete sentences Auscultation: clear to auscultation bilaterally Cardio Rate: regular rate Rhythm: regular rhythm Neuro General: patient oriented x3 Extrem Other: No active synovitis Assessment & Plan Assessment & Plan (1) Osteoporosis: Code(s): M81.0 - Age-related osteoporosis without current pathological fracture Qualifiers: Osteoporosis type: age-related Presence of current pathological fracture: without current pathological fracture Qualified Code(s): M81.0 - Age- related osteoporosis without current pathological fracture Plan: This is a 62-year-old female who presents for evaluation of osteoporosis. She is currently asymptomatic. There is no history of fractures. No known family history of osteoporosis. Likely primary osteoporosis. Discussed osteoporosis. Different management strategies. Discussed calcium and vitamin-D intake. Weight-bearing exercise (patient exercises regularly, lifts weights as well), avoiding falls. I discussed risks and benefits of bisphosphonates and suggested started alendronate. Patient stated that she will think about it. Patient will call our office if she is interested in starting it Plan I spent 25 minutes reviewing patient's chart, evaluating patient, counseling patient and documenting in the chart Coding Level of Care Code New Pt Level 3 (18880) Diagnoses Age-related osteoporosis without current pathological fracture M81.0 Osteoporosis type: age-related Presence of current pathological fracture: without current pathological fracture
== END 2023-04-20 11:25 | disposition home or self-care (01) ==
PROVIDERS: PCP Internal Medicine; Visit Provider Student in an Organized Health Care Education/Training Program
DX: M81.0 Age-related osteoporosis without current pathological fracture (principal)
CPT/HCPCS: 99203

== ENCOUNTER → 2023-04-20 10:40 | Outpatient (BNVA) | payer OTHER, SELFPAY | PROVIDERS: PCP Internal Medicine; Visit Provider Student in an Organized Health Care Education/Training Program ==

== ENCOUNTER 2023-06-09 09:24 | Outpatient (REF) | payer OTHER, SELFPAY ==
[2023-06-09 10:40] LABS: Influenza A PCR NEGATIVE (Negative); Influenza B PCR NEGATIVE (Negative); Resp Syncy Virus RNA Qual PCR NEGATIVE (Negative); SARS COV2 PCR INHOUSE NEGATIVE (Negative)
[2023-06-09 11:27] LABS: Vitamin D 25-OH Total 27.1 ng/mL (>30)
== END 2023-06-09 09:25 | disposition home or self-care (01) ==
LOC: HO.LAB 09:24
PROVIDERS: PCP Internal Medicine; Visit Provider Internal Medicine
DX: Z11.52 Encounter for screening for COVID-19 (principal); Z20.822 Contact with and (suspected) exposure to COVID-19; E55.9 Vitamin D deficiency, unspecified; R09.89 Other specified symptoms and signs involving the circulatory and respiratory systems
CPT/HCPCS: 0241U; 82306

== ENCOUNTER 2023-06-10 06:25 | Outpatient (REF) | payer OTHER, SELFPAY ==
[2023-06-10 07:42] LABS: Alanine Aminotransferase 24 U/L (0-31); Albumin Level 4.3 g/dL (3.5-5.0); Alkaline Phosphatase 86 U/L (39-117); Anion Gap 11 (12-20); Aspartate Amino Transferase 24 U/L (5-31); Bilirubin Total 0.5 mg/dL (0.0-1.0); Blood Urea Nitrogen 17 mg/dL (9-16); Calcium 9.6 mg/dL (8.4-10.2); Carbon Dioxide 25 mmol/L (22-29); Chloride 109 mmol/L (96-108); Estimated Glomerular Filt Rate > 60; Glucose Fasting 91 mg/dL (60-99); Potassium 5.1 mmol/L (3.3-5.1); Sodium 140 mmol/L (135-145); Total Protein 7.5 g/dL (6.5-8.0)
[2023-06-10 07:46] LABS: Thyroid Stimulating Hormone 2.25 uIU/mL (0.32-4.0)
== END 2023-06-10 06:26 | disposition home or self-care (01) ==
LOC: HO.LAB 06:25
PROVIDERS: PCP Internal Medicine; Visit Provider Internal Medicine
DX: R73.01 Impaired fasting glucose (principal); R53.83 Other fatigue
CPT/HCPCS: 36415; 80053; 84443

== ENCOUNTER 2023-09-14 13:38 | Outpatient (AMB) | payer OTHER, SELFPAY ==
--- NOTE | 2023-09-14 13:46 | A.OFFPC_ITS ---
Vital Signs 09/14/23 13:48 Height 5 ft 4 in Weight 111 lb 4 oz BMI 19.1 BP 90/60 Blood Pressure Location Lt brachial Position Sitting Pulse 93 Pulse Source Pulse Oximeter Pulse Oximetry (%) 96 Oxygen Delivery Method Room Air Intake Visit Reasons: Bone Pain Intake Note: Patient is here to follow up on both hip pain radiating done to the knees with nausea. Medical Scheduler Required: No Livestock Judging Coach: Not Required per policy Accompanied by: Self / Same As Patient Allergies ciprofloxacin [Cipro] Allergy (Intermediate, Verified 09/14/23 13:48) numbness Sulfa (Sulfonamide Antibiotics) [SULFA (SULFONAMIDE ANTIBIOTICS)] Allergy (Intermediate, Verified 09/14/23 13:48) RASH Tobacco use date assessed: 09/14/23 Dental Screening Dental Screen Date: 09/14/23 Did you have a dental visit in the last 12 months?: Yes Did you have a dental problem in the last 6 months where you did not have access to dental care?: No Was dental information given to patient?: Patient has dentist HPI Bone Pain HPI Details 63-year-old female presents to the [facility] for a sick visit. For the past 3 days, patient is reporting pain in her lower back radiating into her legs. The symptoms are over both her hips and radiating down into both legs. No fall or injury prior to the onset of symptoms. Patient is very active and is on no medications. She eats healthy and is on a regular exercise plan. Last year she was diagnosed with osteoporosis, she declined taking medications. Able to function and do all activities of daily living. Patient reports a 3 lb weight loss. [facility] Medical History Chest pain Hypotension Chest wall pain Chronic fatigue Dizziness Chronic leukopenia History of high cholesterol Rash and nonspecific skin eruption Surgical History H/O colonoscopy History of myomectomy H/O resection of small bowel History of reversal of tubal ligation History of tubal ligation Family History Father No problems noted. Mother Diabetes Breast cancer Maternal Grandmother Diabetes Cancer Sister Ovarian cancer Family/Other FH: mental illness Maternal Grandfather Myocardial infarction Paternal Grandfather Medical history unknown Paternal Grandmother No problems noted. 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 1. Little interest or pleasure in doing things: not at all 2. Feeling down, depressed, or hopeless: not at all 3. Trouble falling or staying asleep, or sleeping too much: not at all 4. Feeling tired or having little energy: not at all 5. Poor appetite or overeating: not at all 6. Feeling bad about yourself - or that you are a failure or have let yourself or your family down: not at all 7. Trouble concentrating on things, such as reading the newspaper or watching television: not at all 8. Moving or speaking so slowly that other people could have noticed. Or the opposite - being so fidgety or restless that you have been moving around a lot more than usual: not at all 9. Thoughts that you would be better off or of hurting yourself in some way: not at all Total score: 0 Depression Screening Interpretation: Negative Depression Screening Done: Yes Source: Developed by Drs. Herrera Rodriguez, Michelle Santiago, Liborio Dexter and colleagues, with an educational sheree from [employer]. Thrive Questionnaire Date Thrive assessed: 09/14/23 I am a: Patient What is your living situation today?: I have a steady place to live Within the past 12 months, did the food you bought not last and you didn't have the money to get more?: Never true Within the past 12 months, did you worry whether your food would run out before you got money to buy more?: Never true Do you have trouble paying for medicines?: No Do you have trouble getting transportation to medical appointments?: No Do you have trouble paying your heating and electricity bill?: No Do you have trouble taking care of your child, family member or friend?: No Do you have trouble with day-to-day activities such as bathing, preparing meals, shopping, managing finances, etc.?: No Are you currently unemployed and looking for a job?: No Are you interested in more education?: No Currently or been in a relationship where the following occur: no concerns reported THRIVE Score: 0 AUDIT C Alcohol Use Questionnaire (AUDIT-C) 1. How often do you have a drink containing alcohol?: Never 2. How many drinks containing alcohol do you have on a typical day when you are drinking?: 1 or 2 Total Score: 0 NESSA-7 AMB Questionnaire NESSA-7 Date NESSA - 7 assessed: 09/14/23 Feeling nervous, anxious, or on edge: 0 = Not at all Not being able to stop or control worryin = Not at all Worrying too much about different things: 0 = Not at all Trouble relaxin = Not at all Being so restless that it is hard to sit still: 0 = Not at all Becoming easily annoyed or irritable: 0 = Not at all Feeling afraid as if something awful might happen: 0 = Not at all Total NESSA-7 score (0-4 normal; 5-9 mild; 10-14 moderate; 15-21 severe): 0 Source: Developed by Drs. Herrera Rodriguez, Michelle Santiago, Liborio Dexter and colleagues, with an educational sheree from [employer]. Physical exam (Primary Care) Vital Signs: Last Vital Signs Pulse 93 09/14/23 13:48 BP 90/60 09/14/23 13:48 Pulse Ox 96 09/14/23 13:48 Oxygen Delivery Method Room Air 09/14/23 13:48 BMI result Body Mass Index 19.1 Tobacco/Smoking Status: Tobacco use Status Tobacco use date assessed 09/14/23 09/14/23 13:54 Patient Tobacco Use Status Never used Tobacco 09/14/23 13:54 e-Cigarette/Vaping Use Never Used 09/14/23 13:54 PHQ-9: PHQ-9 Score PHQ-9: Total score 0 09/14/23 13:54 Depression Screening Interpretation: Negative Thrive Assessment: Date of Thrive Assessment Date Thrive assessed 09/14/23 09/14/23 13:54 Currently or been in a relationship where the following occur: no concerns reported Const General: cooperative and healthy appearing Nutritional Appearance: well nourished Orientation/consciousness: patient oriented x3 Limitations: no limitations HENMT Head: Yes normal to inspection Eyes General: appearance normal, both eyes and all related structures Neck Neck: Yes normal visual inspection Chest Chest palpation & inspection: normal palpation of entire chest wall Resp Effort & Inspection: normal respiratory effort Back/Spine/Pelvis Other: Back: Lower spine: No spinal tenderness or paraspinal spasm. Straight leg raising on the right and left side is negative. Full range of motion at the right and left hip. Neuro General: patient oriented x3 Assessment and Plan Assessment & Plan (1) Osteoarthritis: Code(s): M1 - Unspecified osteoarthritis, unspecified site Plan X-rays and blood work ordered. Inflammatory markers need to be checked. Patient was advised to take [id number] ibuprofen. Note for work given Orders: Orders Erythrocyte Sedimentation Rate Today M16.11 - Unilateral primary osteoarthritis, right hip, M16.12 - Unilateral primary osteoarthritis, left hip Thyroid Stimulating Hormone Today M16.11 - Unilateral primary osteoarthritis, right hip, M16.12 - Unilateral primary osteoarthritis, left hip Basic Metabolic Panel Today M16.11 - Unilateral primary osteoarthritis, right hip, M16.12 - Unilateral primary osteoarthritis, left hip Complete Blood Count no Diff Today M16.11 - Unilateral primary osteoarthritis, right hip, M16.12 - Unilateral primary osteoarthritis, left hip C Reactive Protein Today M16.11 - Unilateral primary osteoarthritis, right hip, M16.12 - Unilateral primary osteoarthritis, left hip Lipid Panel Today M16.11 - Unilateral primary osteoarthritis, right hip, M16.12 - Unilateral primary osteoarthritis, left hip Liver Panel Today M16.11 - Unilateral primary osteoarthritis, right hip, M16.12 - Unilateral primary osteoarthritis, left hip UA and rflx microscopic Today M16.11 - Unilateral primary osteoarthritis, right hip, M16.12 - Unilateral primary osteoarthritis, left hip XR hip LT min 2V Today M1 - Unspecified osteoarthritis, unspecified site XR hip RT w PEL1V Today - Unspecified osteoarthritis, unspecified site Coding Level of Care Code Est Pt Level 4 (73001) Diagnoses Osteoarthritis
[2023-09-14 13:48] VITALS: BP 90/60; PULSE 93; O2SAT 96; BMI 19.1
== END 2023-09-14 14:10 | disposition home or self-care (01) ==
PROVIDERS: PCP Internal Medicine; Visit Provider Internal Medicine
DX: M19.90 Unspecified osteoarthritis, unspecified site (principal)
CPT/HCPCS: 99214

== ENCOUNTER 2023-09-14 14:20 | Outpatient (REF) | payer OTHER, SELFPAY ==
--- NOTE | ~2023-09-14 | XR_ITS ---
EXAMINATION: XR BILATERAL HIPS WITH AP PELVIS CLINICAL INFORMATION: Unspecified osteoarthritis. COMPARISON: None available. TECHNIQUE: AP view of the pelvis and frog-leg lateral views of each hip were obtained. FINDINGS: SI joints, hips, and pubic symphysis are normal. Degenerative disc disease present at L5-S1. Soft tissues are unremarkable. XR/XR hip BI w PEL1V IMPRESSION: 1. Normal pelvis and hips. 2. Degenerative disc disease at L5-S1.
[2023-09-14 15:15] LABS: Hematocrit 41.3 % (37.0-47.0); Hemoglobin 13.7 g/dl (12.0-16.0); Mean Corpuscular HGB Conc 33.2 g/dl (31.0-35.0); Mean Corpuscular Hemoglobin 29.9 pg (27.0-33.0); Mean Corpuscular Volume 90.2 fL (80.0-98.0); Mean Platelet Volume 9.9 fL (9.4-12.3); Platelet Count 205 X10*3/uL (160-400); Red Blood Count 4.58 X10*6/uL (4.20-5.50); Red Cell Distribution Width 13.3 % (11.0-16.0); White Blood Count 4.8 X10*3/uL (4.8-10.8)
[2023-09-14 15:30] LABS: Appearance Urine Clear; Color Urine Yellow; Glucose Urine UA Negative (Negative); Leukocyte Esterase Urine Negative (Negative); Nitrite Urine Negative (Negative); PH 6.5 (5.0-9.0); Specific Gravity - Urine <= 1.005 (1.005-1.025); Urine Blood Negative (Negative); Urine Ketones Negative (Negative); Urine Protein Negative (Neg-Trace)
[2023-09-14 15:54] LABS: Alanine Aminotransferase 25 U/L (0-31); Albumin Level 4.4 g/dL (3.5-5.0); Alkaline Phosphatase 83 U/L (39-117); Anion Gap 14 (12-20); Aspartate Amino Transferase 21 U/L (5-31); Bilirubin Direct 0.1 mg/dL (0.0-0.5); Bilirubin Total 0.4 mg/dL (0.0-1.0); Blood Urea Nitrogen 13 mg/dL (9-16); C Reactive Protein < 0.10 mg/dL (< or = 0.50); Calcium 9.6 mg/dL (8.4-10.2); Carbon Dioxide 26 mmol/L (22-29); Chloride 104 mmol/L (96-108); Cholesterol 174 mg/dL (<200); Estimated Glomerular Filt Rate > 60; Glucose Random 152 mg/dL (60-115); HDL Cholesterol 92 mg/dL (>40); LDL Cholesterol Calculated 72 mg/dL (<100); Sodium 140 mmol/L (135-145); Triglycerides 53 mg/dL (<150)
[2023-09-14 16:11] LABS: Thyroid Stimulating Hormone 1.28 uIU/mL (0.32-4.0)
[2023-09-14 16:25] LABS: Erythrocyte Sedimentation Rate 2 MM/HR (0-20)
== END 2023-09-14 14:21 | disposition home or self-care (01) ==
LOC: HO.LAB 14:20
PROVIDERS: PCP Internal Medicine; Visit Provider Internal Medicine
DX: M16.12 Unilateral primary osteoarthritis, left hip (principal); M16.11 Unilateral primary osteoarthritis, right hip
CPT/HCPCS: 36415; 73521; 80048; 80061; 80076; 81003; 84443; 85027; 85652; 86140

== ENCOUNTER 2023-09-27 16:16 | Outpatient (AMB) | payer OTHER, SELFPAY ==
[2023-09-27 16:17] VITALS: BP 102/60; PULSE 81; TEMP 36.7; O2SAT 98
--- NOTE | 2023-09-27 16:17 | MHC.OFFWIV ---
Intake Vital Signs 09/27/23 16:17 Height 5 ft 4 in BP 102/60 Blood Pressure Location Rt brachial Position Sitting Pulse 81 Pulse Source Pulse Oximeter Temp 98.0 F Temp Source Oral Pulse Oximetry (%) 98 Oxygen Delivery Method Room Air Intake Visit Reasons: EP Lip concerns Intake Note: pt is here for c/o about a white rash on lip for over a month without going away Patient Tobacco Use Status: Never used Tobacco Allergies ciprofloxacin [Cipro] Allergy (Intermediate, Verified 09/14/23 13:48) numbness Sulfa (Sulfonamide Antibiotics) [SULFA (SULFONAMIDE ANTIBIOTICS)] Allergy (Intermediate, Verified 09/14/23 13:48) RASH Do you need a note to return to daycare/school/sports/work: No HPI HPI Comments History of Present Illness Details Patient presents to the walk-in today for sick visit Complaining of irritation to the corner of her mouth on the right side Started after she had been flossing with non waxed dental floss Concerned as it has been over 1 month it is not going away Denies pain, denies itching [facility] Medical History (Updated 09/27/23 @ 16:38 by Becca Mendoza APRN, OPTICAL LABORATORY MANAGER) Chest pain Hypotension Chest wall pain Chronic fatigue Dizziness Chronic leukopenia History of high cholesterol Rash and nonspecific skin eruption Surgical History H/O colonoscopy History of myomectomy H/O resection of small bowel History of reversal of tubal ligation History of tubal ligation Family History Father No problems noted. Mother Diabetes Breast cancer Maternal Grandmother Diabetes Cancer Sister Ovarian cancer Family/Other FH: mental illness Maternal Grandfather Myocardial infarction Paternal Grandfather Medical history unknown Paternal Grandmother No problems noted. 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 Answers questions appropriately. Fully engaged in examination. Skin: warm, dry, intact. White/silver discoloration corner of the mouth of the right side. Does not extend inside the mouth HEENT: Normocephalic. Hearing intact. Cardiac: External chest normal in appearance. Respiratory: No cough, audible wheezing or stridor. Abdomen: without gross distension. MS: No obvious swelling or deformities. Neurological: Oriented to person, place, time and situation. Thought process intact. No gait abnormalities appreciated. Psychiatric: Appropriate mood and affect. Good judgment and insight. Assessment & Plan Assessment & Plan (1) Candidiasis: Code(s): B37.9 - Candidiasis, unspecified Plan Clotrimazole 1% apply to area twice daily Follow up with dentist Follow up with PCP or return here for any new or worsening symptoms Medications: New clotrimazole 1% 1 appl topical BID 30 grams 0RF Coding Level of Care Code Est Pt Level 3 (33586) Diagnoses Candidiasis B37.9
== END 2023-09-27 16:43 | disposition home or self-care (01) ==
PROVIDERS: PCP Internal Medicine; Visit Provider Registered Nurse Emergency
DX: B37.9 Candidiasis, unspecified (principal)
CPT/HCPCS: 99213

== ENCOUNTER 2023-12-14 07:22 | Outpatient (AMB) | payer OTHER, SELFPAY ==
[2023-12-14 07:35] VITALS: BP 108/68; BMI 18.9
--- NOTE | 2023-12-14 07:35 | MHC.PC.OV ---
Vital Signs 12/14/23 07:35 Height 5 ft 4 in Weight 110 lb BMI 18.9 BP 108/68 Blood Pressure Location Lt brachial Position Sitting Intake Visit Reasons: Annual Exam Intake Note: Patient here for an annual physical exam Fiber Optic Splicer Required: No Accompanied by: Self / Same As Patient Allergies ciprofloxacin [Cipro] Allergy (Intermediate, Verified 12/14/23 07:46) numbness Sulfa (Sulfonamide Antibiotics) [SULFA (SULFONAMIDE ANTIBIOTICS)] Allergy (Intermediate, Verified 12/14/23 07:46) RASH Medication List - Last Reconciled 12/14/23 by Neida Black MD fluocinolone 0.025% topical ketoconazole 2% 1 appl topical Tobacco use date assessed: 09/14/23 Dental Screening Dental Screen Date: 09/14/23 HPI HPI Comments History of Present Illness Details This is a 63-year-old female that comes for her physical exam. Mammogram done less than a year ago was normal. Colonoscopy still pending and she follows with Gastroenterology for that matter. Pap smear up-to-date as per patient with OBGYN. DEXA scan done 2022 shows osteoporosis and saw Rheumatology which wanted to put her on alendronate but she declined. No chest pain or shortness on breath. [facility] Medical History Chest pain Hypotension Chest wall pain Chronic fatigue Dizziness Chronic leukopenia History of high cholesterol Rash and nonspecific skin eruption Surgical History H/O colonoscopy History of myomectomy H/O resection of small bowel History of reversal of tubal ligation History of tubal ligation Family History Father No problems noted. Mother Diabetes Breast cancer Maternal Grandmother Diabetes Cancer Sister Ovarian cancer Family/Other FH: mental illness Maternal Grandfather Myocardial infarction Paternal Grandfather Medical history unknown Paternal Grandmother No problems noted. 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 Current occupational exposures/hazards: No Cognitive needs: No Hearing needs: No Vision needs: Yes Questionnaire Thrive Questionnaire Date Thrive assessed: 09/14/23 NESSA-7 AMB Questionnaire NESSA-7 Date NESSA - 7 assessed: 09/14/23 Source: Developed by Drs. Herrera Rodriguez, Michelle Santiago, Liborio Dexter and colleagues, with an educational sheree from [employer]. Review of Systems Const All systems reviewed & are unremarkable except as noted in HPI and below Card Denies chest pain at rest, Denies chest pain with activity, Denies edema, Denies irregular heart rhythm, Denies claudication, Denies dyspnea, Denies dyspnea on exertion, Denies orthopnea, Denies paroxysmal nocturnal dyspnea and Denies slow heart rate Resp Denies cough, Denies dyspnea and Denies dyspnea on exertion GI Denies abdominal pain, Denies change in bowel habits, Denies excessive flatus, Denies nausea and Denies vomiting Denies urinary incontinence, Denies urinary hesitancy and Denies urinary urgency Physical exam (Primary Care) Vital Signs: Last Vital Signs BP 108/68 12/14/23 07:35 BMI result Body Mass Index 18.9 Tobacco/Smoking Status: Tobacco use Status Tobacco use date assessed 09/14/23 12/14/23 07:42 Patient Tobacco Use Status Never used Tobacco 12/14/23 07:42 e-Cigarette/Vaping Use Never Used 12/14/23 07:42 Thrive Assessment: Date of Thrive Assessment Date Thrive assessed 09/14/23 12/14/23 07:42 [facility] Head: Yes normal to inspection, Yes normocephalic and Yes atraumatic Ears: external ears normal Eyes General: appearance normal, both eyes and all related structures Eyelids: Yes eyelids normal Conjunctivae: conjunctivae normal Neck Neck: Yes normal visual inspection and Yes supple Resp Effort & Inspection: normal respiratory effort Auscultation: clear to auscultation bilaterally Cardio Jugular venous distension: no JVD Rate: regular rate Rhythm: regular rhythm Heart sounds: S1 normal heart sound present and S2 normal heart sound present GI Inspection: Yes normal to inspection Palpation (GI): Soft to palpation and nontender Auscultation: normal bowel sounds Skin General skin exam: no rashes or lesions noted Neuro General: no focal motor deficits Extrem General: Yes full ROM Psych Appearance: grossly normal Assessment and Plan Assessment & Plan (1) Physical exam: Code(s): Z00.00 - Encounter for general adult medical examination without abnormal findings Plan: Repeat in a year. Orders: Orders Comprehensive Holden. Panel Fast Today Z00.00 - Encounter for general adult medical examination without abnormal findings Coding Level of Care Code Est Pt Prev Care 40-64y(93004) Diagnoses Physical exam Z00.00 Time Spent (min) 30
== END 2023-12-14 08:02 | disposition home or self-care (01) ==
PROVIDERS: PCP Internal Medicine; Visit Provider Internal Medicine
DX: Z00.00 Encounter for general adult medical examination without abnormal findings (principal)
CPT/HCPCS: 99396

== ENCOUNTER 2023-12-14 08:09 | Outpatient (REF) | payer OTHER, SELFPAY ==
[2023-12-14 09:40] LABS: Alanine Aminotransferase 19 U/L (0-31); Albumin Level 4.4 g/dL (3.5-5.0); Alkaline Phosphatase 71 U/L (39-117); Anion Gap 10 (12-20); Aspartate Amino Transferase 19 U/L (5-31); Bilirubin Total 0.5 mg/dL (0.0-1.0); Blood Urea Nitrogen 10 mg/dL (9-16); Calcium 10.1 mg/dL (8.4-10.2); Carbon Dioxide 28 mmol/L (22-29); Chloride 107 mmol/L (96-108); Estimated Glomerular Filt Rate > 60; Glucose Fasting 97 mg/dL (60-99); Potassium 4.4 mmol/L (3.3-5.1); Sodium 141 mmol/L (135-145); Total Protein 7.1 g/dL (6.5-8.0)
== END 2023-12-14 08:10 | disposition home or self-care (01) ==
LOC: HO.LAB 08:09
PROVIDERS: PCP Internal Medicine; Visit Provider Internal Medicine
DX: Z00.00 Encounter for general adult medical examination without abnormal findings (principal)
CPT/HCPCS: 36415; 80053

== ENCOUNTER 2024-01-18 08:09 | Outpatient (REF) | payer OTHER, SELFPAY ==
--- NOTE | ~2024-01-18 | MM_ITS ---
EXAMINATION: MM SCREENING DIGITAL BREAST TOMOSYNTHESIS, BILATERAL CLINICAL INFORMATION: Screening. Asymptomatic. COMPARISON: Mammography: Comparison is made with available priors TECHNIQUE: Digital breast mammography with tomosynthesis is performed in both the craniocaudal and mediolateral oblique views along with computer-aided detection (CAD). FINDINGS: There are scattered areas of fibroglandular density (ACR BI-RADS breast composition Category b). Left: There are no significant masses, abnormal calcifications, or other abnormalities. Right: Asymmetry superior breast middle depth on MLO view. There are no abnormal calcifications, or other abnormalities. MM/MM tomosynthesis screening BI IMPRESSION: Additional imaging is recommended ASSESSMENT: BI-RADS BI-RADS 0 - Incomplete: Needs additional Imaging. RECOMMENDATION: 1. Additional views of the right breast 2. Targeted ultrasound if warranted after review of the additional views. 3. Radiology department staff will contact the patient for additional imaging. Additional Imaging required This examination should not preclude the clinical evaluation of a suspicious palpable abnormality. This patient's information was entered into a reminder system with a target due date for their next mammogram. Electronically signed by: Carla Briones DO 01/28/2024 12:35 PM EDT
== END 2024-01-18 08:10 | disposition home or self-care (01) ==
LOC: HO.MAMMO 08:09
PROVIDERS: PCP Internal Medicine; Visit Provider Internal Medicine
DX: Z12.31 Encounter for screening mammogram for malignant neoplasm of breast (principal)
CPT/HCPCS: 77063; 77067

== ENCOUNTER → 2024-01-18 08:15 | Outpatient (BNV) | payer OTHER, SELFPAY | PROVIDERS: PCP Internal Medicine; Visit Provider Internal Medicine | DX: Z12.31 Encounter for screening mammogram for malignant neoplasm of breast (principal) | CPT/HCPCS: 77063; 77067 ==

== ENCOUNTER 2024-03-15 13:03 | Outpatient (REF) | payer OTHER, SELFPAY ==
--- NOTE | ~2024-03-15 | US_ITS ---
EXAMINATION: MM DIAGNOSTIC DIGITAL BREAST TOMOSYNTHESIS, RIGHT US BREAST LIMITED, RIGHT MAMMOGRAPHY: CLINICAL INFORMATION: Diagnostic exam; follow-up one view asymmetry upper anterior MLO view right breast. COMPARISON: Mammography: 01/18/2024, 02/10/2023, 01/15/2023, 12/05/2021, 05/20/2020. TECHNIQUE: Digital breast tomosynthesis is performed in the following views: Full field 3-D digital right mediolateral view, as well as a spot compression 3-D right MLO view. Computer-aided diagnosis was used for this study. This was followed by targeted right breast ultrasound. FINDINGS: There are scattered areas of fibroglandular density (ACR BI-RADS breast composition Category b). Focal asymmetry in the upper slightly outer right breast, MLO view, appears to not definitively persist on diagnostic views, and has no definite CC correlate. This has an appearance on the MLO spot compression of summation artifact/superimposition of overlapping normal breast tissue. We will evaluate this area with ultrasound. No suspicious findings are seen. ULTRASOUND: CLINICAL INFORMATION: As above. COMPARISON: None relevant. TECHNIQUE: Targeted sonographic evaluation right breast was performed using a high frequency linear transducer. Attention was given to the 10:00 to the 2:00 axis, to include the area of concern. Selected archived documentation. FINDINGS: RIGHT BREAST: There is a mixture of fatty and fibroglandular tissue. No suspicious mass is seen. There is no pathologic acoustic shadowing. There is no cystic abnormality. There is no correlate to the right breast superior asymmetry. US/US breast RT limited mamm only IMPRESSION: -There are no findings suspicious for malignancy right breast. -Asymmetry in the superior right breast does not persist on spot diagnostic views or ultrasound. This is consistent with superimposition artifact. -Recommend the patient resume routine annual screening. OVERALL ASSESSMENT: Mammography: BI-RADS 1 - Negative Ultrasound: BI-RADS 1 - Negative RECOMMENDATION: 1 year F/U This patient's information was entered into a reminder system with a target due date for their next mammogram. Electronically signed by: Travon Rutledge MD 03/15/2024 01:43 PM [facility]
== END 2024-03-15 13:04 | disposition home or self-care (01) ==
LOC: HO.MAMMO 13:03
PROVIDERS: PCP Internal Medicine; Visit Provider Internal Medicine
DX: N64.89 Other specified disorders of breast (principal)
CPT/HCPCS: 76642; 77061; 77065

== ENCOUNTER → 2024-03-15 13:30 | Outpatient (BNV) | payer OTHER, SELFPAY | PROVIDERS: PCP Internal Medicine; Visit Provider Radiology Diagnostic Radiology | DX: R92.8 Other abnormal and inconclusive findings on diagnostic imaging of breast (principal) | CPT/HCPCS: 76642; 77061; 77065 ==

== ENCOUNTER 2024-05-03 10:07 | Outpatient (AMB) | payer OTHER, SELFPAY ==
--- NOTE | 2024-05-03 10:26 | A.OFFPC_ITS ---
Vital Signs 05/03/24 10:37 Height 5 ft 4 in Weight 112 lb 6 oz BMI 19.3 BP 90/60 Blood Pressure Location Lt brachial Position Sitting Pulse 70 Pulse Source Pulse Oximeter Pulse Oximetry (%) 98 Oxygen Delivery Method Room Air Intake Visit Reasons: Pain and check up Intake Note: Patient is here to follow up on Pain on right rib area radiated to the back then down right hip and the right leg on going for months. Pt decline flu shot. Testing Director Required: No Brake Reliner: Not Required per policy Accompanied by: Self / Same As Patient Allergies ciprofloxacin [Cipro] Allergy (Intermediate, Verified 05/03/24 10:37) numbness Sulfa (Sulfonamide Antibiotics) [SULFA (SULFONAMIDE ANTIBIOTICS)] Allergy (Intermediate, Verified 05/03/24 10:37) RASH Medication List - Last Reconciled 05/03/24 by Ronda Benton PA-C No Known Home Meds Tobacco use date assessed: 05/03/24 Dental Screening Dental Screen Date: 05/03/24 Did you have a dental visit in the last 12 months?: Yes Did you have a dental problem in the last 6 months where you did not have access to dental care?: No Was dental information given to patient?: Patient has dentist HPI HPI Comments History of Present Illness Details 64-year-old female [facility] and reporting right-sided flank, right upper quadrant and right back pain that has been intermittent over the past 1-2 months. She is concerned about her kidneys and liver. She reports she is urinating normally. She is not having any fevers, chills, chest pain, shortness of breath, rashes, dysuria, urinary frequency or urgency, hematuria, abnormal vaginal discharge or any other symptoms complaints or concerns related to this. She is requesting imaging of her liver and her kidneys. Patient is currently not taking any medications. Patient reports she had labs in August and November of 2023 which were within normal limits. Patient interested in Cologuard. Is hesitant to perform colonoscopy at this time. Patient had mammogram on 03/15/2024 and a breast ultrasound. These were within normal limits. Patient had a DEXA scan and was seen by rheumatology recommended alondronte although patient declined. [facility] Medical History (Updated 05/03/24 @ 13:23 by Ronda Benton PA-C) Breast cancer screening by mammogram (~03/15/24) Chest pain Hypotension Chest wall pain Chronic fatigue Dizziness Chronic leukopenia History of high cholesterol Rash and nonspecific skin eruption Surgical History H/O colonoscopy History of myomectomy H/O resection of small bowel History of reversal of tubal ligation History of tubal ligation Family History Father No problems noted. Mother Diabetes Breast cancer Maternal Grandmother Diabetes Cancer Sister Ovarian cancer Family/Other FH: mental illness Maternal Grandfather Myocardial infarction Paternal Grandfather Medical history unknown Paternal Grandmother No problems noted. 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 1. Little interest or pleasure in doing things: not at all 2. Feeling down, depressed, or hopeless: not at all 3. Trouble falling or staying asleep, or sleeping too much: not at all 4. Feeling tired or having little energy: not at all 5. Poor appetite or overeating: not at all 6. Feeling bad about yourself - or that you are a failure or have let yourself or your family down: not at all 7. Trouble concentrating on things, such as reading the newspaper or watching television: not at all 8. Moving or speaking so slowly that other people could have noticed. Or the opposite - being so fidgety or restless that you have been moving around a lot more than usual: not at all 9. Thoughts that you would be better off or of hurting yourself in some way: not at all Total score: 0 Depression Screening Interpretation: Negative Depression Screening Done: Yes Source: Developed by Drs. Herrera Rodriguez, Liborio Underwood and colleagues, with an educational sheree from [employer]. Thrive Questionnaire Date Thrive assessed: 05/03/24 I am a: Patient What is your living situation today?: I have a steady place to live Within the past 12 months, did the food you bought not last and you didn't have the money to get more?: Never true Within the past 12 months, did you worry whether your food would run out before you got money to buy more?: Never true Do you have trouble paying for medicines?: No Do you have trouble getting transportation to medical appointments?: No Do you have trouble paying your heating and electricity bill?: No Do you have trouble taking care of your child, family member or friend?: No Do you have trouble with day-to-day activities such as bathing, preparing meals, shopping, managing finances, etc.?: No Are you currently unemployed and looking for a job?: No Are you interested in more education?: No Please select the resources that you would like help with: None Currently or been in a relationship where the following occur: No concerns reported THRIVE Score: 0 AUDIT C Alcohol Use Questionnaire (AUDIT-C) 1. How often do you have a drink containing alcohol?: Never Total Score: 0 NESSA-7 AMB Questionnaire NESSA-7 Date NESSA - 7 assessed: 05/03/24 Feeling nervous, anxious, or on edge: 0 = Not at all Not being able to stop or control worryin = Not at all Worrying too much about different things: 0 = Not at all Trouble relaxin = Not at all Being so restless that it is hard to sit still: 0 = Not at all Becoming easily annoyed or irritable: 0 = Not at all Feeling afraid as if something awful might happen: 0 = Not at all Total NESSA-7 score (0-4 normal; 5-9 mild; 10-14 moderate; 15-21 severe): 0 Source: Developed by Drs. Herrera Rodriguez, Liborio Underwood and colleagues, with an educational sheree from [employer]. Physical exam (Primary Care) Vital Signs: Last Vital Signs Pulse 70 05/03/24 10:37 BP 90/60 05/03/24 10:37 Pulse Ox 98 05/03/24 10:37 Oxygen Delivery Method Room Air 05/03/24 10:37 Care Plan Goal for BP management: at goal BP today 90/60 BMI result Body Mass Index 19.3 BMI Assessment/Plan discussion: Low BMI Low, Plan discussed: lifestyle, increase calorie intake and dietary Tobacco/Smoking Status: Tobacco use Status Tobacco use date assessed 05/03/24 05/03/24 10:43 Patient Tobacco Use Status Never used Tobacco 05/03/24 10:28 e-Cigarette/Vaping Use Never Used 05/03/24 10:28 PHQ-9: PHQ-9 Score PHQ-9: Total score 0 05/03/24 10:28 Depression Screening Interpretation: Negative Thrive Assessment: Date of Thrive Assessment Date Thrive assessed 05/03/24 05/03/24 10:28 Currently or been in a relationship where the following occur: No concerns reported Const Other: Appearance: Alert. Oriented X3. No acute distress. Head: Normal external exam. Normocephalic. Atraumatic. Eyes: Conjunctiva and sclera normal. Eyelids normal. ENT: MMM. Normal voice. Neck: Normal inspection. Neck supple. FROM. No adenopathy. Thyroid Normal. No meningeal signs. No neck mass noted. CVS: Normal heart rate and rhythm. Heart sound normal. Pulses normal throughout. No murmurs/rales/gallops. Respiratory: No respiratory distress. Painless inspiration. Breath sounds normal. No wheezes/rales/rhonchi noted. Chest nontender. No crepitus is noted. No accessory muscle usage noted or decreased air movement noted. No signs of trauma. Abdomen: Soft and mild tenderness to right upper quadrant. Negative Russell sign. Nondistended. No guarding. No rigidity. No distention noted. No organomegaly noted. No visible injury noted. No rebound tenderness. Back: Full range of motion noted. Skin: Skin warm and dry. Normal skin color. Normal skin turgor. No rashes/lesions/lacerations noted. Extremities: No lower extremity edema. No calf tenderness is noted. Extremities exhibit normal range of motion and nontender. Neuro: Oriented X 3. Moving all extremities. Normal steady gait. No focal neuro deficits noted. Vascular: + radial pulses b/l. Normal cap refill. No cyanosis noted. Coding Level of Care Code Est Pt Level 4 (99882) Complex EM visit Add On G2211 Diagnoses Follow-up exam, 3-6 months since previous exam Z09 Flank pain R10.9 Right upper quadrant abdominal pain R10.11 Idiopathic hypotension I95.0 Hypotension type: idiopathic hypotension Chronic fatigue R53.82 Chronic leukopenia D72.819 Breast cancer screening by mammogram Z12.31 Screening for colon cancer Z12.11 Age-related osteoporosis without current pathological fracture M81.0 Osteoporosis type: age-related Presence of current pathological fracture: without current pathological fracture Assessment & Plan Assessment & Plan (1) Follow-up exam, 3-6 months since previous exam: Code(s): Z09 - Encounter for follow-up examination after completed treatment for conditions other than malignant neoplasm Category: Medical Plan: Patient has normal exam. Patient to follow-up in 3-6 months. (2) Flank pain: Code(s): R10.9 - Unspecified abdominal pain Category: Medical Plan: Patient with right upper quadrant/right flank pain. Denies any other symptoms. Will obtain labs, UA and order abdominal/kidney and bladder ultrasounds. Will continue to monitor. (3) Right upper quadrant abdominal pain: Code(s): R10.11 - Right upper quadrant pain Category: Medical Plan: Patient with right upper quadrant/right flank pain. Denies any other symptoms. Will obtain labs, UA and order abdominal/kidney and bladder ultrasounds. Will continue to monitor. (4) Hypotension: Code(s): I95.9 - Hypotension, unspecified Category: Medical Qualifiers: Hypotension type: idiopathic hypotension Qualified Code(s): I95.0 - Idiopathic hypotension Plan: Chronic. Blood pressure 90/60. Patient denies any complaints. Condition is stable. Will continue to monitor. (5) Chronic fatigue: Code(s): R53.82 - Chronic fatigue, unspecified Category: Medical Plan: Chronic. Patient denies any complaints. Condition is stable. Will continue to monitor. (6) Chronic leukopenia: Code(s): D72.819 - Decreased white blood cell count, unspecified Category: Medical Plan: Last blood count patient's white blood cell was within normal limits. Condition is stable. Will continue to monitor. (7) Breast cancer screening by mammogram: Onset Date: ~03/15/24 Code(s): Z12.31 - Encounter for screening mammogram for malignant neoplasm of breast Category: Medical Plan: Patient's last mammogram was 03/15/2024 was within normal limits. Condition is stable. Will continue to monitor. (8) Screening for colon cancer: Code(s): Z12.11 - Encounter for screening for malignant neoplasm of colon Category: Medical Plan: Patient declining colonoscopy at this time. Will start with Cologuard. Will review results once patient has completed. Patient understands if positive results she will need a colonoscopy. If negative she will not need a colonoscopy at this time. (9) Osteoporosis: Code(s): M81.0 - Age-related osteoporosis without current pathological fracture Category: Medical Qualifiers: Osteoporosis type: age-related Presence of current pathological fracture: without current pathological fracture Qualified Code(s): M81.0 - Age- related osteoporosis without current pathological fracture Plan: Patient was seen by rheumatology. They Discussed osteoporosis. Different management strategies. Discussed calcium and vitamin-D intake. Weight-bearing exercise (patient exercises regularly, lifts weights as well), avoiding falls. I discussed risks and benefits of bisphosphonates and suggested started al endronate. Patient stated that she will think about it. Condition is stable. Will continue to monitor. Plan 1. Fasting blood work ordered 2. Cologuard ordered for colon cancer screening 3. Patient to follow-up as scheduled for mammogram/breast cancer screening 4. Patient to have ultrasound of abdomen, bladder and kidneys to evaluate the cause of the patient's right upper quadrant/right flank pain that has been present over the past few months 5. Patient to return in 3-6 months for re-evaluation Orders: Orders Comprehensive [place]. Panel Fast Today Z09 - Encounter for follow-up examination after completed treatment for conditions other than malignant neoplasm Complete Blood Count Auto Diff Today Z09 - Encounter for follow-up examination after completed treatment for conditions other than malignant neoplasm Lipid Panel Today Z09 - Encounter for follow-up examination after completed treatment for conditions other than malignant neoplasm Magnesium Today Z09 - Encounter for follow-up examination after completed treatment for conditions other than malignant neoplasm Vitamin D 25-OH Total Today Z09 - Encounter for follow-up examination after completed treatment for conditions other than malignant neoplasm US renal BI Today R10.9 - Unspecified abdominal pain US bladder Today R10.9 - Unspecified abdominal pain Liver Panel Today Z09 - Encounter for follow-up examination after completed treatment for conditions other than malignant neoplasm TSH reflex Free T4 Today Z09 - Encounter for follow-up examination after completed treatment for conditions other than malignant neoplasm UA CC w/rflx Micro + Cult Today Z09 - Encounter for follow-up examination after completed treatment for conditions other than malignant neoplasm Vitamin B12 and Folate Today R10.9 - Unspecified abdominal pain Hemoglobin A1c Today Z09 - Encounter for follow-up examination after completed treatment for conditions other than malignant neoplasm US abdomen complete Today R10.11 - Right upper quadrant pain, R10.9 - Unspecified abdominal pain Referrals Cologuard Test Z12.11 - Encounter for screening for malignant neoplasm of colon, Z12.12 - Encounter for screening for malignant neoplasm of rectum
[2024-05-03 10:37] VITALS: BP 90/60; PULSE 70; O2SAT 98; BMI 19.3
== END 2024-05-03 11:18 | disposition home or self-care (01) ==
PROVIDERS: PCP Internal Medicine; Visit Provider Physician Assistant Medical
DX: Z09 Encounter for follow-up examination after completed treatment for conditions other than malignant neoplasm (principal); R10.9 Unspecified abdominal pain; R10.11 Right upper quadrant pain; I95.0 Idiopathic hypotension; R53.82 Chronic fatigue, unspecified; D72.819 Decreased white blood cell count, unspecified; Z12.31 Encounter for screening mammogram for malignant neoplasm of breast; Z12.11 Encounter for screening for malignant neoplasm of colon; M81.0 Age-related osteoporosis without current pathological fracture

== ENCOUNTER 2024-05-04 07:44 | Outpatient (REF) | payer OTHER, SELFPAY ==
--- NOTE | ~2024-05-04 | US_ITS ---
EXAMINATION: US PELVIS LIMITED (BLADDER) CLINICAL INFORMATION: Abdominal pain.. COMPARISON: None available. TECHNIQUE: Real-time imaging of the bladder. FINDINGS: BLADDER: Fluid-filled. Bilateral ureteral jets are demonstrated. Prevoid bladder volume is 656 mL. Postvoid bladder volume is 102 mL. US/US bladder IMPRESSION: 102 residual urine in a post void image.. Electronically signed by: Matheus Baker MD 05/04/2024 09:39 AM EST
--- NOTE | ~2024-05-04 | US_ITS ---
EXAMINATION: US ABDOMEN COMPLETE CLINICAL INFORMATION: Right upper quadrant pain. COMPARISON: Limited ultrasound dated March 09, 2011. Correlated to CT dated July 13, 2016. TECHNIQUE: Real-time imaging of the abdominal viscera using grayscale and color Doppler technique. FINDINGS: PANCREAS: No peripancreatic fluid collections. ABDOMINAL AORTA: The proximal, mid, and distal segments are normal in caliber. INFERIOR VENA CAVA: Visualized portions are normal. LIVER: Liver measures 11 cm. The liver contour is normal. Parenchymal echogenicity is normal. There is a well-defined 6 mm anechoic lesion in the periphery of the left hepatic lobe. No intrahepatic biliary ductal dilatation. GALLBLADDER: Fluid-filled. No pericholecystic fluid collection or gallbladder wall thickening. COMMON BILE DUCT: 3 mm. RIGHT KIDNEY: 10 cm. Normal echotexture. Normal renal cortical thickness. No hydronephrosis. No solid or cystic lesion. Normal flow on color Doppler interrogation of the renal hilum.. LEFT KIDNEY: 10 cm. Normal echotexture. No solid or cystic lesion. Prominence of the pelvicalyceal system, mild to moderate.. SPLEEN: 8 cm. No focal lesion.. FREE FLUID: None. US/US abdomen complete IMPRESSION: Hydronephrosis, mild to moderate left kidney. No cholelithiasis. 6 mm cystic lesion left hepatic lobe. No ascites. Electronically signed by: Matheus Baker MD 05/04/2024 09:38 AM EST
[2024-05-04 07:58] LABS: MANUAL DIFF FLAG NO
[2024-05-04 08:06] LABS: Basophils Percent Auto 0.4 % (0-2); Eosinophils Absolute Auto 0.1 X10*3/uL (0.0-0.4); Eosinophils Percent Auto 1.9 % (0-4); Hematocrit 42.2 % (37.0-47.0); Imm Gran Abs Auto 0.01 X10*3/uL (0.00-0.03); Imm Gran Pct Auto 0.2 % (0.0-0.4); Lymphocytes Absolute Auto 1.2 X10*3/uL (1.2-4.9); Lymphocytes Percent Auto 25.3 % (20-40); Mean Corpuscular HGB Conc 33.2 g/dl (31.0-35.0); Mean Corpuscular Hemoglobin 29.5 pg (27.0-33.0); Monocytes Absolute Auto 0.6 X10*3/uL (0.1-1.2); Monocytes Percent Auto 11.9 % (2-11); Neutrophils Absolute Auto 2.8 x10*3/uL (2.0-8.3); Neutrophils Percent Auto 60.3 % (45-73); Platelet Count 216 X10*3/uL (160-400); Red Blood Count 4.74 X10*6/uL (4.20-5.50); Red Cell Distribution Width 13.3 % (11.0-16.0); White Blood Count 4.7 X10*3/uL (4.8-10.8)
[2024-05-04 08:16] LABS: Estimated Average Glucose 111 mg/dL; Hemoglobin A1C 133.0042 umol/L; Hemoglobin A1c % 5.5 % (<6.0); Total Hemoglobin (HGBA1C) 3675.6608 umol/L
[2024-05-04 08:37] LABS: Alanine Aminotransferase 31 U/L (0-31); Albumin Level 4.3 g/dL (3.5-5.0); Alkaline Phosphatase 74 U/L (39-117); Anion Gap 13 (12-20); Aspartate Amino Transferase 25 U/L (5-31); Bilirubin Direct 0.2 mg/dL (0.0-0.5); Bilirubin Total 0.6 mg/dL (0.0-1.0); Blood Urea Nitrogen 8 mg/dL (9-16); Calcium 9.1 mg/dL (8.4-10.2); Carbon Dioxide 23 mmol/L (22-29); Chloride 105 mmol/L (96-108); Cholesterol 198 mg/dL (<200); Estimated Glomerular Filt Rate > 60; Glucose Fasting 96 mg/dL (60-99); HDL Cholesterol 99 mg/dL (>40); LDL Cholesterol Calculated 92 mg/dL (<100); Magnesium 2.1 mg/dL (1.6-2.6); Potassium 4.9 mmol/L (3.3-5.1); Sodium 136 mmol/L (135-145); Total Protein 7.1 g/dL (6.5-8.0); Triglycerides 39 mg/dL (<150)
[2024-05-04 08:51] LABS: TSH reflex Free T4 2.45 uIU/mL (0.32-4.0)
[2024-05-04 09:02] LABS: Folate 11.9 ng/mL (> or = 4.0); Vitamin B12 504 pg/mL (200-900)
[2024-05-04 10:05] LABS: Appearance Urine Clear; Color Urine Straw; Glucose Urine UA Negative (Negative); Leukocyte Esterase Urine Negative (Negative); Nitrite Urine Negative (Negative); Urine Blood Negative (Negative); Urine Ketones Negative (Negative); Urine Protein Negative (Neg-Trace)
== END 2024-05-04 07:45 | disposition home or self-care (01) ==
LOC: HO.US 07:44
PROVIDERS: PCP Internal Medicine; Visit Provider Physician Assistant Medical
DX: Z09 Encounter for follow-up examination after completed treatment for conditions other than malignant neoplasm (principal); N13.30 Unspecified hydronephrosis; K76.89 Other specified diseases of liver; R10.9 Unspecified abdominal pain; R10.11 Right upper quadrant pain; Z13.1 Encounter for screening for diabetes mellitus
CPT/HCPCS: 36415; 76700; 76857; 80053; 80061; 80076; 81003; 82248; 82306; 82607; 82746; 83036; 83735; 84443; 85025

== ENCOUNTER → 2024-05-04 08:01 | Outpatient (BNV) | payer OTHER, SELFPAY | PROVIDERS: PCP Internal Medicine; Visit Provider Radiology Diagnostic Radiology | DX: N13.30 Unspecified hydronephrosis (principal); R33.9 Retention of urine, unspecified | CPT/HCPCS: 76700; 76857 ==

== ENCOUNTER 2024-05-26 15:20 | Outpatient (AMB) | payer OTHER, SELFPAY ==
[2024-05-26 15:21] VITALS: BP 90/46; PULSE 76; O2SAT 99; BMI 19.9
--- NOTE | 2024-05-26 15:21 | A.OFFVIS_ITS ---
Vital Signs 05/26/24 15:21 Height 5 ft 4 in Weight 115 lb 15.41 oz BMI 19.9 BP 90/46 L Blood Pressure Location Rt brachial Position Sitting Pulse 76 Pulse Source Pulse Oximeter Pulse Oximetry (%) 99 Oxygen Delivery Method Room Air Intake Visit Reasons: FUV req by PCP. Liver cyst? Intake Note: ESTABLISHED PATIENT for FUV s/p screening Chief Complaint; Pt denies any GI concerns. Pt did have a brief episode of weakness and headache this morning which caused her to call in sick to work. Pt reports they are feeling better now with rest, food, and water. Vitamin D is going well per pt, noticable results. 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 Liver cyst?: Details: LAST VISIT Screen for colon cancer Patient denies any cardiac or respiratory symptoms. No issues with anesthesia in the past. No history of sleep apnea. Not on any anticoagulation medication. Denies any infectious diseases in the past or present. Discussed with patient what to expect before during and after the procedure. Clear liquid diet and good bowel prep discussed with patient. I will see her after the procedure, sooner on as needed basis. Patient is agreeable to this plan and verbalizes understanding of instructions. She was given the opportunity to ask questions and all questions answered. ? Thank you for allowing me to participate in her care Plan Medications New bisacodyl (Dulcolax (bisacodyl)) take 2 tabs at noon the day before your colonoscopy 10 mg (2 x 5 mg) PO ONCE 2 tabs 0RF 1 day Z12.11 polyethylene glycol 3350 (Miralax) As directed by gastroenterology department at [facility] 238 grams PO ONCE 238 grams 0RF Z12.11 TODAY'S VISIT Patient is here, recently sent by her PCP. Patient had ultrasound of the abdome n that showed 6 mm cystic lesion in left lobe of her liver. Patient had ultrasound done for abdominal pain in April of 2022, no abnormal findings identified on that ultrasound. Patient denies any GI concerning symptoms. Denies any abdominal pain or discomfort. Liver enzymes normal as well as normal bili. Patient was supposed to go for colonoscopy, however due to her mother's illness patient was unable to go through with the procedure. Patient reports that her mom is in and out of hospitals and she needs to pend to her. PCP ordered Cologuard and patient will do the test 1st. If positive we will talk about going for colonoscopy. Patient was feeling little weak and tired today. Patient is feeling better now. Patient states that she rested 8 food and drank water and she is feeling well. Patient denies any dyspepsia, dysphagia or odynophagia. Denies melena, hematochezia, unintentional weight loss or ribbon like stools. [facility] Medical History Breast cancer screening by mammogram (~03/15/24) Chest pain Hypotension Chest wall pain Chronic fatigue Dizziness Chronic leukopenia History of high cholesterol Rash and nonspecific skin eruption Surgical History H/O colonoscopy History of myomectomy H/O resection of small bowel History of reversal of tubal ligation History of tubal ligation Family History Father No problems noted. Mother Diabetes Breast cancer Maternal Grandmother Diabetes Cancer Sister Ovarian cancer Family/Other FH: mental illness Maternal Grandfather Myocardial infarction Paternal Grandfather Medical history unknown Paternal Grandmother No problems noted. 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 [employer] Current occupational exposures/hazards: No Cognitive needs: No Hearing needs: No Vision needs: Yes Review of Systems Const Denies weight gain and Denies weight loss ENT Reports no additional complaints, Denies dysphagia and Denies odynophagia Card Reports no additional complaints Resp Reports no additional complaints GI Denies abdominal pain, Denies belching, Denies melena, Denies bloating, Denies change in bowel habits, Denies dysphagia, Denies excessive flatus, Denies dyspepsia, Denies heartburn, Denies diarrhea, Denies loose stools, Denies nausea, Denies odynophagia and Denies vomiting Musc Reports no additional complaints Neuro Reports no additional complaints Psych Reports no additional complaints Endo Reports no additional complaints Physical Exam Vital Signs: Last Vital Signs Pulse 76 05/26/24 15:21 BP 90/46 L 05/26/24 15:21 Pulse Ox 99 05/26/24 15:21 Oxygen Delivery Method Room Air 05/26/24 15:21 BMI result Body Mass Index 19.9 Const General: healthy appearing, no acute distress and well developed Nutritional Appearance: well nourished Orientation/consciousness: patient oriented x3 Resp Effort & Inspection: normal respiratory effort, able to speak in complete sentences, no tracheal deviation and symmetric chest movement Auscultation: clear to auscultation bilaterally Cardio Rate: regular rate GI Inspection: Yes normal to inspection and No distended Palpation (GI): Soft to palpation, not firm, nontender and No hepatosplenomegaly present Auscultation: normal bowel sounds General: Yes no CVA tenderness Back/Spine/Pelvis Back: no CVA tenderness Skin General skin exam: elasticity normal, turgor normal and dry skin Neuro General: patient oriented x3 Psych Appearance: grossly normal Mental Status: mental status grossly normal Results Reviewed Results Reviewed: Laboratory Tests 05/04/24 07:57 Hemoglobin A1c % 5.5 Magnesium 2.1 Total Bilirubin 0.6 Direct Bilirubin 0.2 AST 25 ALT 31 Alkaline Phosphatase 74 Albumin 4.3 Triglycerides 39 Cholesterol 198 LDL Cholesterol, Calc 92 Vitamin B12 504 25-OH Vitamin D Total 24.0 L Folate 11.9 TSH 2.45 ABDOMINAL ULTRASOUND FINDINGS: PANCREAS: No peripancreatic fluid collections. ABDOMINAL AORTA: The proximal, mid, and distal segments are normal in caliber. INFERIOR VENA CAVA: Visualized portions are normal. LIVER: Liver measures 11 cm. The liver contour is normal. Parenchymal echogenicity is normal. There is a well-defined 6 mm anechoic lesion in the periphery of the left hepatic lobe. No intrahepatic biliary ductal dilatation. GALLBLADDER: Fluid-filled. No pericholecystic fluid collection or gallbladder wall thickening. COMMON BILE DUCT: 3 mm. RIGHT KIDNEY: 10 cm. Normal echotexture. Normal renal cortical thickness. No hydronephrosis. No solid or cystic lesion. Normal flow on color Doppler interrogation of the renal hilum.. LEFT KIDNEY: 10 cm. Normal echotexture. No solid or cystic lesion. Prominence of the pelvicalyceal system, mild to moderate.. SPLEEN: 8 cm. No focal lesion.. FREE FLUID: None. US/US abdomen complete IMPRESSION: Hydronephrosis, mild to moderate left kidney. No cholelithiasis. 6 mm cystic lesion left hepatic lobe. No ascites. Assessment & Plan Assessment & Plan (1) Liver cyst: Code(s): K76.89 - Other specified diseases of liver Category: Medical Plan Will order MRI to better evaluate 6 mm cystic lesion in left lobe of her kidney. Most likely hemangioma, patient had normal echogenicity unlikely fatty sparing but possible. Patient's vitamin-D was 24 we will change the dose to 5000 units daily. Recheck vitamin-D in 3 months. All questions and concerns discussed with patient. Patient is agreeable to current plan of care and verbalizes understanding of instructions. She was given the opportunity to ask questions all questions answered. Thank you for allowing me to participate in her care Orders: Orders MR abdomen wo/w con Today K76.89 - Other specified diseases of liver Medications: New cholecalciferol (vitamin D3) 125 mcg PO DAILY 90 caps 3RF E55.9 - Vitamin D deficiency, unspecified Discontinued cholecalciferol (vitamin D3) Discontinued Reason: Doctor's Order 1,250 mcg PO QWEEK 3 months 13 caps 1RF vit d deficiency Coding Level of Care Code Est Pt Level 3 (02447) Diagnoses Liver cyst K76.89 Time Spent (min) 30 Comment 20 minutes spent with patient and additional 10 minutes spent reviewing her records
== END 2024-05-26 16:47 | disposition home or self-care (01) ==
PROVIDERS: PCP Internal Medicine; Visit Provider Nurse Practitioner Family
DX: K76.89 Other specified diseases of liver (principal)
CPT/HCPCS: 99213

== ENCOUNTER → 2024-05-26 15:20 | Outpatient (BNVA) | payer OTHER, SELFPAY | PROVIDERS: PCP Internal Medicine; Visit Provider Nurse Practitioner Family ==

== ENCOUNTER → 2024-06-14 08:04 | Outpatient (BNV) | payer OTHER, SELFPAY | PROVIDERS: PCP Internal Medicine; Visit Provider Radiology Diagnostic Radiology | DX: K76.89 Other specified diseases of liver (principal) | CPT/HCPCS: 74183 ==

== ENCOUNTER 2024-06-14 08:10 | Outpatient (REF) | payer OTHER, SELFPAY ==
--- NOTE | ~2024-06-14 | MR_ITS ---
CLINICAL HISTORY: K76.89 - Other specified diseases of liver MR abdomen with and without gadolinium Comparison: US/SR - US ABDOMEN COMPLETE - 05/04/24 08:53 EST US/SR - US ABDOMEN COMPLETE - 05/11/22 07:[address]/SR - ABD PELVIS WITH CONT [id number] - 07/13/16 16:08 EDT Findings: Lung bases are clear. Heart size is normal. 6 mm well-circumscribed nonenhancing cystic focus within the lateral segment left hepatic lobe posteriorly, as well as a 5 mm nonenhancing low T2 intensity focus within the right hepatic lobe medially, consistent with small cysts. These are unchanged, allowing for differences in modality. Liver is otherwise within normal limits. Biliary tree, gallbladder, pancreas, and pancreatic duct are within normal limits. Spleen, adrenals, and kidneys are within normal limits. Visualized bowel loops and vasculature normal in caliber. No adenopathy. Visualized osseous structures are within normal limits. IMPRESSION: Negative examination. This document has been electronically signed by: Christina Valle MD on 06/14/2024 14:40:43
[2024-06-14] MEDS: gadobutroL 7.5 ML VIAL IVPUSH (09:18)
== END 2024-06-14 08:11 | disposition home or self-care (01) ==
LOC: HO.MRI 08:10
PROVIDERS: PCP Internal Medicine; Visit Provider Nurse Practitioner Family
DX: K76.89 Other specified diseases of liver (principal)
CPT/HCPCS: 74183; A9585

== ENCOUNTER 2024-06-27 15:00 | Outpatient (AMB) | payer OTHER, SELFPAY ==
--- NOTE | 2024-06-27 15:05 | MHC.OFFVIS ---
Intake Visit Reasons: mild hydronephrosis(SET) Intake Note: Patient presents today for mild hydronephrosis Allergies ciprofloxacin [Cipro] Allergy (Intermediate, Verified 06/27/24 15:06) numbness Sulfa (Sulfonamide Antibiotics) [SULFA (SULFONAMIDE ANTIBIOTICS)] Allergy (Intermediate, Verified 06/27/24 15:06) RASH HPI Comments Details: Shaniqua is a pleasant female. She is a patient of Dr. Black. She is seen for the following urologic conditions - mild hydronephrosis recent evaluation for intermittent right quadrant pain imaging performed ultrasound with mild left renal pelvic caliectasis no abnormality on MRI repeat imaging in six-month [facility] Medical History Vitamin D deficiency Breast cancer screening by mammogram (~03/15/24) Chest pain Hypotension Chest wall pain Chronic fatigue Dizziness Chronic leukopenia History of high cholesterol Rash and nonspecific skin eruption Surgical History H/O colonoscopy History of myomectomy H/O resection of small bowel History of reversal of tubal ligation History of tubal ligation Family History Father No problems noted. Mother Diabetes Breast cancer Maternal Grandmother Diabetes Cancer Sister Ovarian cancer Family/Other FH: mental illness Maternal Grandfather Myocardial infarction Paternal Grandfather Medical history unknown Paternal Grandmother No problems noted. 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 [employer] Current occupational exposures/hazards: No Cognitive needs: No Hearing needs: No Vision needs: Yes Review of Systems Const Denies chills and Denies fever(s) Card Reports no additional complaints and Denies syncope Resp Denies cough GI Denies abdominal pain and Denies heartburn Reports as per HPI and Denies change in libido Neuro Denies syncope Psych Denies change in libido Endo Denies change in libido Physical Exam Const General: cooperative, healthy appearing, comfortable and no acute distress Orientation/consciousness: patient oriented x3 HEENT Face and sinus: Yes normal facial exam Mouth: moist mucous membranes Neck Neck: Yes normal visual inspection, Yes full ROM and Yes trachea midline Chest Chest palpation & inspection: normal inspection of the chest Resp Effort & Inspection: normal respiratory effort, able to speak in complete sentences and no respiratory distress GI Inspection: Yes normal to inspection Back/Spine/Pelvis Cervical Spine: normal cervical lordosis Thoracic/Lumbar Spine: thoracic and lumbar spine normal to inspection Skin General skin exam: no rashes or lesions noted Neuro General: patient oriented x3, gait normal, tone normal and moves all extremities Extrem General: Yes normal to inspection and Yes capillary refill normal Assessment & Plan Assessment & Plan (1) Hydronephrosis: Code(s): N13.30 - Unspecified hydronephrosis Category: Medical Plan six-month follow-up renal ultrasound Orders: Orders US renal BI 6 Months N13.30 - Unspecified hydronephrosis Patient Instructions: This note is constructed using voice recognition software. While every effort has been made to ensure accuracy medical technician errors may have been included. Imaging studies, laboratory and physical exam results were discussed and reviewed in detail. No major barriers to patient understanding were identified. An opportunity to ask questions regarding the treatment plan was provided. All questions were answered. The patient expressed understanding and agreement with the above treatment plan. The patient is aware they should contact our office by phone for worsening of their current condition or the appearance of new urologic symptoms. Compliance is encouraged with any medications and followup testing that is ordered. It is a privilege to participate in the urologic care of your patient. If you have any questions or concerns regarding treatment for the above conditions, or other urologic issues, please do not hesitate to contact me. The office telephone contact is [phone]. Sincerely, Dr Thomas Bernard MD, [facility] - Urology Compassionate Specialist Care for the Genitourinary System Coding Level of Care Code New Pt Level 3 (41825) Diagnoses Hydronephrosis N13.30
== END 2024-06-27 15:36 | disposition home or self-care (01) ==
PROVIDERS: PCP Internal Medicine; Visit Provider Urology
DX: N13.30 Unspecified hydronephrosis (principal)
CPT/HCPCS: 99203

== ENCOUNTER 2024-08-02 16:20 | Outpatient (AMB) | payer OTHER, SELFPAY ==
--- NOTE | 2024-08-02 16:29 | A.OFFPC_ITS ---
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 Accompanied by: Self / Same As Patient Allergies ciprofloxacin [Cipro] Allergy (Intermediate, Verified 08/02/24 16:39) numbness Sulfa (Sulfonamide Antibiotics) [SULFA (SULFONAMIDE ANTIBIOTICS)] Allergy (Intermediate, Verified 08/02/24 16:39) RASH Medication List - Last Reconciled 08/02/24 by Neida Black MD cholecalciferol (vitamin D3) 125 mcg PO DAILY Tobacco use date assessed: 05/03/24 Dental Screening Dental Screen Date: 05/03/24 HPI HPI Comments History of Present Illness Details The patient is a 64-year-old female presenting with concerns related to hepatic cysts, vitamin D deficiency, and recent weight loss. Previous imaging revealed hepatic cysts which have been assessed as benign, contingent upon lack of growth. Normal function was observed in other hepatic and abdominal areas. Her prior vitamin D level was 24 ng/mL, which is below the expected range, leading to ongoing supplementation. An alteration in dietary habits and increased activity have contributed to a reduction in body weight by 2 pounds. Notably, changes in her workspace lighting have resulted in headaches, requiring intervention for possible relocation back to a less intense light setting. [facility] Medical History Vitamin D deficiency Breast cancer screening by mammogram (~03/15/24) Chest pain Hypotension Chest wall pain Chronic fatigue Dizziness Chronic leukopenia History of high cholesterol Rash and nonspecific skin eruption Surgical History H/O colonoscopy History of myomectomy H/O resection of small bowel History of reversal of tubal ligation History of tubal ligation Family History Father No problems noted. Mother Diabetes Breast cancer Maternal Grandmother Diabetes Cancer Sister Ovarian cancer Family/Other FH: mental illness Maternal Grandfather Myocardial infarction Paternal Grandfather Medical history unknown Paternal Grandmother No problems noted. 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 Herrera Rodriguez, Michelle Santiago, Liborio Dexter and colleagues, with an educational sheree from [employer]. Review of Systems Const All systems reviewed & are unremarkable except as noted in HPI and below Card Denies chest pain at rest, Denies chest pain with activity, Denies edema, Denies irregular heart rhythm, Denies claudication, Denies dyspnea, Denies dyspnea on exertion, Denies orthopnea, Denies paroxysmal nocturnal dyspnea and Denies slow heart rate Resp Denies cough, Denies dyspnea and Denies dyspnea on exertion GI Denies abdominal pain, Denies change in bowel habits, Denies excessive flatus, Denies nausea and Denies vomiting Physical exam (Primary Care) Vital Signs: Last Vital Signs Temp 97.5 F 08/02/24 16:31 Pulse 88 08/02/24 16:31 BP 94/68 08/02/24 16:31 Pulse Ox 99 08/02/24 16:31 Oxygen Delivery Method Room Air 08/02/24 16:31 BMI result Body Mass Index 19.3 BMI Assessment/Plan discussion: Low BMI Low, Plan discussed: lifestyle, increase calorie intake and dietary Tobacco/Smoking Status: Tobacco use Status Tobacco use date assessed 05/03/24 08/02/24 16:30 Patient Tobacco Use Status Never used Tobacco 08/02/24 16:44 e-Cigarette/Vaping Use Never Used 08/02/24 16:44 Thrive Assessment: Date of Thrive Assessment Date Thrive assessed 05/03/24 08/02/24 16:30 Resp Effort & Inspection: normal respiratory effort Auscultation: clear to auscultation bilaterally Cardio Jugular venous distension: no JVD Rate: regular rate Rhythm: regular rhythm Heart sounds: S1 normal heart sound present and S2 normal heart sound present Extrem General: Yes full ROM Coding Level of Care Code Est Pt Level 3 (01763) Complex EM visit Add On G2211 Diagnoses Vitamin D deficiency E55.9 Leukopenia, unspecified type D72.819 Leukopenia type: unspecified Liver cyst K76.89 Time Spent (min) 19 Assessment & Plan Assessment & Plan (1) Vitamin D deficiency: Code(s): E55.9 - Vitamin D deficiency, unspecified Category: Medical (2) Leukopenia: Code(s): D72.819 - Decreased white blood cell count, unspecified Category: Medical Qualifiers: Leukopenia type: unspecified Qualified Code(s): D72.819 - Decreased white blood cell count, unspecified (3) Liver cyst: Code(s): K76.89 - Other specified diseases of liver Category: Medical Plan Observation will continue for hepatic cysts without immediate intervention due to their small size and asymptomatic nature. Further diagnostic imaging may be pursued as part of follow-up care. Vitamin D supplementation is advised, supplemented by dietary adjustments and potentially safe sunlight exposure. To manage weight loss, a balanced diet with periodic carbohydrate inclusion is recommended. A note for workplace modification concerning lighting will be issued to mitigate headache symptoms. Upcoming specialty consultation with gastroenterology for liver evaluation remains scheduled. Patient was informed and verbally consented to the use of an ambient scribe for clinic note documentation during this visit. I discussed with the patient the benign nature of hepatic cysts, emphasizing that current management is observation. Recommendations include regular follow- ups to monitor potential changes. Vitamin D deficiency requires daily supplementation, dietary enhancements, and cautiously increased sun exposure. We reviewed the patient?s dietary plan, suggesting the inclusion of carbohydrates to stabilize weight. Workplace lighting adjustments were discussed, and coord ination for a formal note is underway to address related health impacts. Compliance with upcoming gastroenterology evaluation is encouraged, maintaining a comprehensive approach to health monitoring. Patient Instructions: - Continue taking vitamin D supplements as prescribed. - Include foods rich in vitamin D, such as salmon, in your diet. - Use sunscreen when exposed to sunlight to increase vitamin D safely. - Monitor your weight and try to include healthy carbohydrates in your diet to maintain a stable weight. - Follow up with gastroenterology as scheduled for further liver assessments. - Await the note needed to address lighting issues at work, aiming for improved comfort. - Call the office if symptoms change or concerns arise.
[2024-08-02 16:31] VITALS: BP 94/68; PULSE 88; TEMP 36.4; O2SAT 99; BMI 19.3
== END 2024-08-02 16:52 | disposition home or self-care (01) ==
LOC: HO.HMCH 16:20
PROVIDERS: PCP Internal Medicine; Visit Provider Internal Medicine
DX: E55.9 Vitamin D deficiency, unspecified (principal); D72.819 Decreased white blood cell count, unspecified; K76.89 Other specified diseases of liver

== ENCOUNTER → 2024-08-02 16:20 | Outpatient (BNVA) | payer OTHER, SELFPAY | PROVIDERS: PCP Internal Medicine; Visit Provider Internal Medicine | DX: Z13.89 Encounter for screening for other disorder (principal) ==

== ENCOUNTER 2024-08-09 07:44 | Outpatient (AMB) | payer OTHER, SELFPAY ==
[2024-08-09 08:00] VITALS: BP 98/48; PULSE 80; O2SAT 98; BMI 19.4
--- NOTE | 2024-08-09 08:00 | MHC.OFFVIS ---
Vital Signs 08/09/24 08:00 Height 5 ft 4 in Weight 113 lb BMI 19.4 BP 98/48 L Blood Pressure Location Lt brachial Position Sitting Pulse 80 Pulse Source Pulse Oximeter Pulse Oximetry (%) 98 Oxygen Delivery Method Room Air Intake Visit Reasons: mri review liver cyst Intake Note: ESTABLISHED PATIENT for FUV for Liver Cyst. MRI complete. Chief Complaint; No additional sx or concerns at this time. Adoption Social Worker Required: No Allergies ciprofloxacin [Cipro] Allergy (Intermediate, Verified 08/09/24 08:00) numbness Sulfa (Sulfonamide Antibiotics) [SULFA (SULFONAMIDE ANTIBIOTICS)] Allergy (Intermediate, Verified 08/09/24 08:00) RASH HPI HPI mri review liver cyst: Details: LAST VISIT: Liver cyst Plan Will order MRI to better evaluate 6 mm cystic lesion in left lobe of her liver. Most likely hemangioma, patient had normal echogenicity unlikely fatty sparing but possible. Patient's vitamin-D was 24 we will change the dose to 5000 units daily. Recheck vitamin-D in 3 months. All questions and concerns discussed with patient. Patient is agreeable to current plan of care and verbalizes understanding of instructions. She was given the opportunity to ask questions all questions answered. ? Thank you for allowing me to participate in her care Orders Orders MR abdomen wo/w con Today K76.89 Medications New cholecalciferol (vitamin D3) 125 mcg PO DAILY 90 caps 3RF E55.9 Discontinued cholecalciferol (vitamin D3) Discontinued Reason: Doctor's Order 1,250 mcg PO QWEEK 3 months 13 caps 1RF vit d deficiency TODAY'S VISIT Patient is here today for follow-up and to discuss MRI results. Unchanged liver cyst seen on MRI. No acute processes seen. Patient reports that she has been busy working and was unable to go to get Cologuard sent. Patient declined colonoscopy due to mother's illness and her busy schedule. Patient denies any GI concerning symptoms. Continues to have a right rib pain. Patient reports that she had appointment with her PCP and forgot to talk about that. Patient was encouraged to call her PCP or go to urgent care if her pain is going to get worse. Patient reports that this pain is constant worse when moving. Pain is not associated with meals. Patient denies any nausea or vomiting. Denies any dyspepsia, dysphagia or odynophagia. Denies any melena, hematochezia, unintentional weight loss or ribbon like stools. PENDING SALE TO [facility] Medical History Vitamin D deficiency Breast cancer screening by mammogram (~03/15/24) Chest pain Hypotension Chest wall pain Chronic fatigue Dizziness Chronic leukopenia History of high cholesterol Rash and nonspecific skin eruption Surgical History H/O colonoscopy History of myomectomy H/O resection of small bowel History of reversal of tubal ligation History of tubal ligation Family History Father No problems noted. Mother Diabetes Breast cancer Maternal Grandmother Diabetes Cancer Sister Ovarian cancer Family/Other FH: mental illness Maternal Grandfather Myocardial infarction Paternal Grandfather Medical history unknown Paternal Grandmother No problems noted. 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 [employer] Current occupational exposures/hazards: No Cognitive needs: No Hearing needs: No Vision needs: Yes Review of Systems Const Denies weight gain and Denies weight loss ENT Reports no additional complaints, Denies dysphagia and Denies odynophagia Card Reports no additional complaints Resp Reports no additional complaints GI Denies abdominal pain, Denies belching, Denies melena, Denies bloating, Denies change in bowel habits, Denies constipation, Denies dysphagia, Denies excessive flatus, Denies dyspepsia, Denies heartburn, Denies diarrhea, Denies loose stools, Denies nausea, Denies odynophagia and Denies vomiting Reports no additional complaints Musc Reports no additional complaints Neuro Reports no additional complaints Psych Reports no additional complaints Endo Reports no additional complaints Physical Exam Const General: healthy appearing, no acute distress and well developed Nutritional Appearance: well nourished Orientation/consciousness: patient oriented x3 Resp Effort & Inspection: normal respiratory effort, able to speak in complete sentences, no tracheal deviation and symmetric chest movement Auscultation: clear to auscultation bilaterally Cardio Rate: regular rate GI Inspection: Yes normal to inspection and No distended Palpation (GI): Soft to palpation, not firm, nontender and No hepatosplenomegaly present Auscultation: normal bowel sounds General: Yes no CVA tenderness Back/Spine/Pelvis Back: no CVA tenderness Skin General skin exam: elasticity normal, turgor normal and dry skin Neuro General: patient oriented x3 Psych Appearance: grossly normal Mental Status: mental status grossly normal Results Reviewed Results Reviewed: ABDOMINAL MRI Findings: Lung bases are clear. Heart size is normal. 6 mm well-circumscribed nonenhancing cystic focus within the lateral segment left hepatic lobe posteriorly, as well as a 5 mm nonenhancing low T2 intensity focus within the right hepatic lobe medially, consistent with small cysts. These are unchanged, allowing for differences in modality. Liver is otherwise within normal limits. Biliary tree, gallbladder, pancreas, and pancreatic duct are within normal limits. Spleen, adrenals, and kidneys are within normal limits. Visualized bowel loops and vasculature normal in caliber. No adenopathy. Visualized osseous structures are within normal limits. IMPRESSION: Negative examination. Assessment & Plan Assessment & Plan (1) Liver cyst: Code(s): K76.89 - Other specified diseases of liver Category: Medical (2) Right upper quadrant abdominal pain: Code(s): R10.11 - Right upper quadrant pain Category: Medical Plan Patient will call her PCP if her right with pain is going to get worse. Patient reports that the pain is not sharp, however it is annoying. Patient reports that she has been working a lot of hours staying very busy at work. Encouraged patient to send her Cologuard back to company so it can be processed. Patient understands that if that comes back positive we recommend strongly to go for colonoscopy. Patient will follow-up with us as needed. She is agreeable to this plan and verbalizes understanding of instructions. She was given the opportunity to ask questions and all questions answered. Thank you for allowing me to participate in her care Coding Level of Care Code Est Pt Level 3 (44882) Diagnoses Liver cyst K76.89 Right upper quadrant abdominal pain R10.11 Time Spent (min) 30 Comment 20 minutes spent with patient and additional 10 minutes spent reviewing her records
== END 2024-08-09 08:24 | disposition home or self-care (01) ==
PROVIDERS: PCP Internal Medicine; Visit Provider Nurse Practitioner Family
DX: K76.89 Other specified diseases of liver (principal); R10.11 Right upper quadrant pain
CPT/HCPCS: 99213

== ENCOUNTER 2024-11-10 08:46 | Outpatient (AMB) | payer OTHER, SELFPAY ==
--- OUTSIDE RECORDS SUMMARY | 2024-11-10 08:49 | XMS_ITS | Clinical Summary ---
Author Organization [facility] Address [address] [place] [id number] Phone Care Team Providers Care Licensed Funeral Director And Embalmer Name Role Phone Neida Rincon MD Primary Care Provid er Allergies Active Allergy Reactions Criticality Noted Date Comments Ciprofloxacin 09/30/2018 numbness Sulfa (Sulfonamide Antibiotics) Rash Low 10/2018 Medications therapeutic multivitamin tablet Take 1 tablet by mouth daily. Active cyanocobalamin, vitamin B-12, 1000 MCG tabletIndications :unsure stength Take 100 mcg by mouth daily. Indications: unsure stength Active cholecalciferol (VITAMIN D3) 5,000 unit capsuleIndication s:Vitamin D insufficiency Take 1 capsule (5,000 Units total) by mouth daily. 90 capsule 1 9 Active Additional Information Patient not taking.Reported on 04/03/2019 cholecalciferol (VITAMIN D3) 25 MCG (1,000 unit) tablet Take 1,000 Units by mouth daily. Active cholecalciferol (VITAMIN D3) 5,000 unit capsule Take 1 capsule (5,000 Units total) by mouth daily. 30 capsule 2 0 Active Active Problems Problem Noted Date Diagnosed Date Osteopenia of multiple sites 04/03/2019 Assessment & Plan (04/26/2019 11:59 AM EST): I reviewed with her need for continuation of proper calcium and vitamin D supplementation in addition to daily, regular weightbearing exercises and offered her a bone preserving therapy with Fosamax or Actonel-pamphlets provided to read and write her questions for discussion. Shoulder arthritis 04/03/2019 Assessment & Plan (04/26/2019 12:01 PM EST): Use warm pack versus warm shower prior to gentle, regular ROM, stretching and muscle strengthening exercises that were shown in the office and explained in details. Written explanations with pictures provided to follow at home regularly. Formal PT offered but patient preferred to try the home exercise program first Postmenopausal 01/02/2019 Assessment & Plan (01/02/2019 10:36 AM EDT): Proper calcium& vit D supplementation Fall & fracture prevention Daily weightbearing exercises Arthralgia of multiple sites 09/30/2018 Assessment & Plan (04/26/2019 11:58 AM EST): I have reassured Shaniqua that based on her history, physical exam today and available laboratory data there are no signs or symptoms suggestive for major systemic rheumatic diseases such as rheumatoid arthritis, systemic lupus erythematosus, Sjogren's syndrome, scleroderma, polymyositis or dermatomyositis at this time. Joint protection, energy conservation. Continue gentle, regular exercise routine including weightbearing exercises. Avoid falls, injuries, overuse. Call with questions or problems. Assessment & Plan (01/02/2019 10:33 AM EDT): I have reassured Shaniqua that based on her history, physical exam today and available laboratory data there are no signs or symptoms suggestive for major systemic rheumatic diseases such as rheumatoid arthritis, cyst thymic lupus erythematosus, Sjogren's syndrome, scleroderma, polymyositis or dermatomyositis at this time. Joint protection, energy conservation. Continue gentle, regular exercise routine including weightbearing exercises. Avoid falls, injuries, overuse. Patient advised to get yearly flu vaccine in view of leukopenia by mid 2018 Call with questions or problems. Assessment & Plan (10/01/2018 12:01 PM EDT): I have reassured Shaniqua that based on her history, physical exam today and available laboratory data there are no signs or symptoms suggestive for major systemic rheumatic diseases such as rheumatoid arthritis, cyst thymic lupus erythematosus, Sjogren's syndrome, scleroderma, polymyositis or dermatomyositis at this time. Joint protection, energy conservation. Continue gentle, regular exercise routine including weightbearing exercises. Avoid falls, injuries, overuse. Call with questions or problems. Vitamin D insufficiency 09/30/2018 Assessment & Plan (04/03/2019 9:11 AM EST): Recheck serum level to assure sufficiency or need for adjusting the dose. Assessment & Plan (01/02/2019 10:34 AM EDT): Educated to take vitamin D exactly as prescribed 5000 units capsule daily 3 months and recheck serum level to assure sufficiency or need for adjusting the dose. Assessment & Plan (10/01/2018 11:57 AM EDT): Educated to take vitamin D exactly as prescribed 50,000 units capsule once a week x 3 months and recheck serum level to assure sufficiency or need for adjusting the dose. Leukopenia 09/30/2018 Assessment & Plan (04/03/2019 9:11 AM EST): She was already seen by her oncologist who assured her about benign nature and no need for close follow-up unless changes in clinical status. Assessment & Plan (01/02/2019 10:35 AM EDT): She was already seen by her oncologist who assured her about benign nature and no need for close follow-up unless changes in clinical status. Assessment & Plan (10/01/2018 11:56 AM EDT): She was already seen by her oncologist who assured her about benign nature and no need for close follow-up unless changes in clinical status. Other headache syndrome 09/30/2018 Assessment & Plan (10/01/2018 12:00 PM EDT): Keep a diary of headaches with modifying factors to review on next visit with her neurologist. Keep well-hydrated. Optimize stress management strategies. Avoid known triggers. Weight loss 09/30/2018 Assessment & Plan (10/01/2018 11:59 AM EDT): Eat well-balanced nutritionally diet and do not be afraid of snacking in between the meals though focus on healthful choices. Patient explained the value keeping body in ideal range for her height. Family History Medical History Relation Comments Heart attack Maternal Grandfather Cancer Maternal Grandmother Diabetes Maternal Grandmother Breast cancer Mother Diabetes Mother Ovarian cancer Sister Relation Status Comments Father Alive Maternal Grandfather Maternal Grandmother Mother Alive Paternal Grandmother Sister Social History Tobacco Use Types Packs/Day Years Used Date Smoking Tobacco: Never Smokeless Tobacco: Never Alcohol Use Standard Drinks/Week Comments Never 0 (1 standard drink = 0.6 oz pur e alcohol) Education Answer Date Recorded Are you interested in more education? Not on aram e 08/21/2022 Are you concerned about learning? Not on file 08/21/2022 No 08/21/2022 No 08/21/2022 Digital Access Answer Date Recorded No 09/19/2022 No 09/19/2022 No 09/19/2022 Reliable internet access at home? Not on file 09/19/2022 Device with a working camera? Not on file Comments Unknown Sex and Gender Information Value Date Recorded Sex Assigned at Not on file Legal Sex Female 2:25 PM EDT Gender Identity Not on file Sexual Orientation Not on file Last Filed Vital Signs Vital Sign Reading Time Taken Comments Blood Pressure 110/62 04/03/2019 8:39 AM EST Pulse - - Temperature - - Respiratory Rate - - Oxygen Saturation - - Inhaled Oxygen Concentration - - Weight 53.3 kg (117 lb 9.6 oz) 04/03/2019 8:39 A M EST Height 162.6 cm (5' 4.02 ) 04/03/2019 8:39 AM ES T Body Mass Index 20.18 04/03/2019 8:39 AM EST Plan of Treatment Health Maintenance Due Date Last Done Comments Adult Td,Tdap Booster 1962 LIPID PANEL 1962 DEPRESSION SCREENING 1974 HEPATITIS C SCREENING 1980 HIV ONE-TIME SCREENING (18-6 5 YEARS) 1980 PAP SMEAR 1983 MAMMOGRAM 2002 COLOGUARD 2007 COLONOSCOPY 2007 COLORECTAL CANCER SCREENING 2007 FIT TEST 2007 FOBT 2007 SIGMOIDOSCOPY 2007 VIRTUAL COLONOSCOPY 2007 PNEUMOCOCCAL VACCINES (50+ y ears) (1 of 1 - PCV) 2012 ZOSTER VACCINES (1 of 2) 2012 COVID-19 VACCINE (1 - 2023-2 5 season) 2023 RSV VACCINE (1 - 1-dose 75+ series) 2037 SMOKING STATUS SCREENING (On ce After 26 Yrs) Completed 04/03/2019 HEPATITIS A VACCINES Aged Out No long er eligible based on patient's age to complete this topic HIB VACCINES Aged Out No longer eligi ble based on patient's age to complete this topic MENINGOCOCCAL VACCINES (ACWY) Aged Out No longer eligible based on patient's age to complete this topic MENINGOCOCCAL VACCINES (B) Aged Out N o longer eligible based on patient's age to complete this topic Medical Devices Not on file Insurance O O O O O O O O O Care Teams Licensed Funeral Director And Embalmer Relationship Specialty Start Date End Date Neida Rincon MD [address] [place] [address] PCP - General Internal Medicine 07/27/18 Additional Source Comments The information contained in this document represents components of the legal health record. It is not the complete legal health record.[facility]
--- OUTSIDE RECORDS SUMMARY | 2024-11-10 08:50 | XMS_ITS | Patient Health Record ---
Author Organization [facility] Address [address] [place] [address] Care Team Providers Care Senior Data Scientist Name Role Phone Neida Rincon Primary Care Provider Herrera Sanchez Unavailable [phone] Allergies Allergen (clinical drug ingredient) Drug/Non Drug Allergy documented on EMR Reaction Allergy Type Onset Date Status Sulfa Unknown Drug Allergy Active Reason For Referral No Information Medications Medication SIG (Take, Route, Frequency, Duration) Notes Start Date End Date Status Colyte with Flavor Packs 240 GM as directed Orally as directed for 1 day(s) 09/13/2012 Active Problems Problem Type SNOMED Code ICD Code Onset Dates Problem Status W/U Status Risk Notes Problem Colon cancer screening (851483590) Colon cancer screening (V76.51) Active confirmed Problem Chronic constipation (564.00) Active confirmed Plan Of Treatment Future Test Test Name Order Date COLONOSCOPY 09/13/2012 Insurance Providers Payer Name Payer Address Payer Phone Subscriber Number Group Number Insured Name Patient Relationship to Insured Coverage Start Date Coverage End Date [facility] [address] [place] [phone] [id number] RAGHAV BEEBEN Self - patient is the insured Medical (General) History Medical History History ICD Code Denies RI,DM,CVA,Lung disease,renal dise ase Describes a negative colonos copy in her 30's [address] Carrillo for evaluation of constipation and bleeding. Surgical History Surgery Date(Month/Year) Tubal ligation Small bowel obstruction in 04/2010-had surgery with laparotomy by Dr. Carrillo-told of adhesions. Tubal ligation reversal
--- NOTE | 2024-11-10 09:00 | MHC.OFFWIV ---
Intake Vital Signs 11/10/24 09:04 Height 5 ft 4 in Weight 114 lb BMI 19.6 BP 98/72 Blood Pressure Location Lt brachial Position Sitting Pulse 77 Pulse Source Pulse Oximeter Temp 98.6 F Temp Source Oral Pulse Oximetry (%) 97 Oxygen Delivery Method Room Air Intake Visit Reasons: EP sore throat, headache Intake Note: presents with sore throat, pain swallowing and spit up mucus with blood, sinus congestion and headache for 3 days. Negative covid test at home. Patient Tobacco Use Status: Never used Tobacco Allergies ciprofloxacin (Cipro) Allergy (Intermediate, Verified 11/10/24 09:05) numbness Sulfa (Sulfonamide Antibiotics) (SULFA (SULFONAMIDE ANTIBIOTICS)) Allergy (Intermediate, Verified 08/09/24 08:00) RASH Do you need a note to return to daycare/school/sports/work: Yes HPI EP sore throat, headache HPI Details This is a 64-year-old female patient who presents to walk-in clinic today with a 4 day history of sore throat, sinus congestion, headache. States that she do a COVID test at home that was negative. She does not have a thermometer at home, however has felt hot on and off. Has been able to tolerate fluids and some foods, however notes that her sensation of taste is somewhat diminished, so she has not been eating her usual diet. Denies any known exposure to sick contacts. Denies any respiratory or GI issues. [facility] Medical History Vitamin D deficiency Breast cancer screening by mammogram (~03/15/24) Chest pain Hypotension Chest wall pain Chronic fatigue Dizziness Chronic leukopenia History of high cholesterol Rash and nonspecific skin eruption Surgical History H/O colonoscopy History of myomectomy H/O resection of small bowel History of reversal of tubal ligation History of tubal ligation Family History Father No problems noted. Mother Diabetes Breast cancer Maternal Grandmother Diabetes Cancer Sister Ovarian cancer Family/Other FH: mental illness Maternal Grandfather Myocardial infarction Paternal Grandfather Medical history unknown Paternal Grandmother No problems noted. 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 [employer] Current occupational exposures/hazards: No Cognitive needs: No Hearing needs: No Vision needs: Yes Review of Systems Const All systems reviewed & are unremarkable except as noted in HPI and below Physical Exam Vital Signs: BMI result Body Mass Index 19.6 Const General: cooperative and no acute distress HEENT Head: Yes normal to inspection Ears: hearing grossly normal bilaterally General nose exam: Normal external nose present Face and sinus: Yes normal facial exam and Yes sinuses nontender Mouth: Normal oral and palatal mucosa present Throat: Yes tonsils normal and Yes posterior oropharynx abnormal (very mild erythema) Neck Neck: Yes no lymphadenopathy Resp Effort & Inspection: normal respiratory effort Auscultation: clear to auscultation bilaterally Cardio Rate: regular rate Rhythm: regular rhythm Skin General skin exam: no rashes or lesions noted Extrem General: Yes capillary refill normal and Yes no clubbing, cyanosis or edema Psych Appearance: grossly normal Mental Status: mental status grossly normal Speech and movement: Normal speech and movement present Assessment & Plan Assessment & Plan (1) Acute viral pharyngitis: Code(s): J02.9 - Acute pharyngitis, unspecified Plan: Rapid strep was negative. This appears to be viral in nature. COVID/flu/RSV swabs obtained, and patient is aware she will be notified of results once these are available. I recommended conservative measures with continued rest, adequate hydration and healthy diet intake, Tylenol/Motrin, and lozenges/cough drops as needed. Patient agrees with plan and will rest over the weekend. Work note provided. If she does not improve with time and conservative measures, she can return to the clinic for further evaluation. Orders: Orders SARS-CoV2/FLU/RSV Today J06.9 - Acute upper respiratory infection, unspecified Coding Level of Care Code Est Pt Level 4 (76832) Diagnoses Acute viral pharyngitis J02.9
[2024-11-10 09:04] VITALS: BP 98/72; PULSE 77; TEMP 37; O2SAT 97; BMI 19.6
== END 2024-11-10 09:41 | disposition home or self-care (01) ==
PROVIDERS: PCP Internal Medicine; Visit Provider Nurse Practitioner Family
DX: J02.9 Acute pharyngitis, unspecified (principal); Z13.9 Encounter for screening, unspecified

== ENCOUNTER 2024-11-10 08:46 | Outpatient (REF) | payer OTHER, SELFPAY ==
[2024-11-10 11:22] LABS: Resp Syncy Virus RNA Qual PCR NEGATIVE (Negative); SARS COV2 PCR INHOUSE NEGATIVE (Negative)
== END 2024-11-10 08:47 | disposition home or self-care (01) ==
LOC: HO.LAB 08:46
PROVIDERS: PCP Internal Medicine; Visit Provider Nurse Practitioner Family
DX: J02.9 Acute pharyngitis, unspecified (principal); J06.9 Acute upper respiratory infection, unspecified
CPT/HCPCS: 87637; 87880

== ENCOUNTER 2024-12-18 07:21 | Outpatient (AMB) | payer OTHER, SELFPAY ==
--- OUTSIDE RECORDS SUMMARY | 2024-12-18 07:24 | XMS_ITS | Clinical Summary ---
Author Organization [facility] Address [address] [place] [address] Phone Care Team Providers Care Truck Technician Name Role Phone Neida Rincon MD Primary [...] O O O O O Care Teams Truck Technician Relationship Specialty Start Date End Date Neida Rincon MD [address] [place] [address] PCP - General Internal Medicine 07/27/18 Additional Source Comments The information contained in this document represents components of the legal health record. It is not the complete legal health record.[facility]
--- OUTSIDE RECORDS SUMMARY | 2024-12-18 07:24 | XMS_ITS | Patient Health Record ---
Author Organization [facility] Address [address] [place] [address] Care Team Providers Care Quality Review Trainer Name Role Phone Neida Rincon Primary Care Provider Herrera Sanchez Unavailable [phone] Allergies Allergen (clinical drug ingredient) Drug/Non Drug [...] Status Risk Notes Problem Colon cancer screening (V76.51) Active confirmed Problem Chronic constipation (790559246) Chronic constipation (564.00) Active confirmed Plan Of Treatment Future Test Test Name Order Date COLONOSCOPY 09/13/2012 Insurance Providers Payer Name Payer Address Payer Phone Subscriber Number Group Number Insured Name Patient Relationship to Insured Coverage Start Date Coverage End Date [facility] [address] [place] [phone] [id number] RAGHAV BEEBEN Self - patient is the insured Medical (General) History Medical History History ICD Code Denies MD,DM,CVA,Lung disease,renal dise ase Describes a negative colonos copy in her 30's [address] Carrillo for evaluation of constipation and bleeding. Surgical History Surgery Date(Month/Year) Tubal ligation Small bowel obstruction in 04/2010-had surgery with laparotomy by Dr. Carrillo-told of adhesions. Tubal ligation reversal
[2024-12-18 07:32] VITALS: BP 110/72; PULSE 68; O2SAT 98; BMI 19.5
--- NOTE | 2024-12-18 07:32 | MHC.PC.OV ---
Vital Signs 12/18/24 07:32 Height 5 ft 4 in Weight 113 lb 8 oz BMI 19.5 BP 110/72 Blood Pressure Location Lt brachial Position Sitting Pulse 68 Pulse Source Pulse Oximeter Pulse Oximetry (%) 98 Oxygen Delivery Method Room Air Intake Visit Reasons: PE [employer]bin Loose End Finder Required: No Accompanied by: Self / Same As Patient Is last menstrual period known: No Allergies ciprofloxacin (Cipro) Allergy (Intermediate, Verified 12/18/24 07:40) numbness Sulfa (Sulfonamide Antibiotics) (SULFA (SULFONAMIDE ANTIBIOTICS)) Allergy (Intermediate, Verified 12/18/24 07:40) RASH Medication List - Last Reconciled 12/18/24 by Neida Black MD cholecalciferol (vitamin D3) 125 mcg PO DAILY multivitamin (Daily Multi-Vitamin tablet) 1 tab PO DAILY Tobacco use date assessed: 12/18/24 Dental Screening Dental Screen Date: 12/18/24 HPI HPI Comments History of Present Illness Details The patient is a 64-year-old female presenting with a physical exam and preventative care management. She reports that her last colonoscopy was over 10 years ago, indicating she is due for another screening. She follows up with gastroenterology for scheduling when she has time off. A bone density test conducted in December 2022 revealed osteoporosis and fatigue lines, necessitating treatment. The patient declined the Tdap vaccine, acknowledging it has been over 10 years since her last vaccination. Her last mammogram in February was normal, and a Pap smear in 2021 was normal with HPV negative results. COUNT INCLUDES [facility] Medical History Vitamin D deficiency Breast cancer screening by mammogram (~03/15/24) Chest pain Hypotension Chest wall pain Chronic fatigue Dizziness Chronic leukopenia History of high cholesterol Rash and nonspecific skin eruption Surgical History H/O colonoscopy History of myomectomy H/O resection of small bowel History of reversal of tubal ligation History of tubal ligation Family History Father No problems noted. Mother Diabetes Breast cancer Maternal Grandmother Diabetes Cancer Sister Ovarian cancer Family/Other FH: mental illness Maternal Grandfather Myocardial infarction Paternal Grandfather Medical history unknown Paternal Grandmother No problems noted. 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 1. Little interest or pleasure in doing things: not at all 2. Feeling down, depressed, or hopeless: not at all 3. Trouble falling or staying asleep, or sleeping too much: not at all 4. Feeling tired or having little energy: not at all 5. Poor appetite or overeating: not at all 6. Feeling bad about yourself - or that you are a failure or have let yourself or your family down: not at all 7. Trouble concentrating on things, such as reading the newspaper or watching television: not at all 8. Moving or speaking so slowly that other people could have noticed. Or the opposite - being so fidgety or restless that you have been moving around a lot more than usual: not at all 9. Thoughts that you would be better off or of hurting yourself in some way: not at all Total score: 0 Depression Screening Interpretation: Negative Depression Screening Done: Yes 55087 - PHQ-9 Billing: Yes Source: Developed by Drs. Herrera Rodriguez, Michelle Santiago, Liborio Dexter and colleagues, with an educational sheree from [employer]. Thrive Questionnaire Date Thrive assessed: 12/18/24 I am a: Patient What is your living situation today?: I have a steady place to live Within the past 12 months, did the food you bought not last and you didn't have the money to get more?: Never true Within the past 12 months, did you worry whether your food would run out before you got money to buy more?: Never true Do you have trouble paying for medicines?: No Do you have trouble getting transportation to medical appointments?: No Do you have trouble paying your heating and electricity bill?: No Do you have trouble taking care of your child, family member or friend?: No Do you have trouble with day-to-day activities such as bathing, preparing meals, shopping, managing finances, etc.?: No Are you currently unemployed and looking for a job?: No Are you interested in more education?: No Please select the resources that you would like help with: None Currently or been in a relationship where the following occur: No concerns reported THRIVE Score: 0 AUDIT C Alcohol Use Questionnaire (AUDIT-C) 1. How often do you have a drink containing alcohol?: Monthly or less 2. How many drinks containing alcohol do you have on a typical day when you are drinking?: 1 or 2 3. How often do you have six or more drinks on one occasion?: Never Total Score: 1 Score Reviewed/Action Taken: No NESSA-7 AMB Questionnaire NESSA-7 Date NESSA - 7 assessed: 12/18/24 Feeling nervous, anxious, or on edge: 0 = Not at all Not being able to stop or control worryin = Not at all Worrying too much about different things: 0 = Not at all Trouble relaxin = Not at all Being so restless that it is hard to sit still: 0 = Not at all Becoming easily annoyed or irritable: 0 = Not at all Feeling afraid as if something awful might happen: 0 = Not at all Total NESSA-7 score (0-4 normal; 5-9 mild; 10-14 moderate; 15-21 severe): 0 Source: Developed by Drs. Herrera Rodriguez, Michelle Santiago, Liborio Dexter and colleagues, with an educational sheree from [employer]. NESSA-7 Assessment Billing NESSA-7 Assessment Tool: NESSA-7 Assessment 76669 Review of Systems Const All systems reviewed & are unremarkable except as noted in HPI and below Card Denies chest pain at rest, Denies chest pain with activity, Denies edema, Denies irregular heart rhythm, Denies claudication, Denies dyspnea, Denies dyspnea on exertion, Denies orthopnea, Denies paroxysmal nocturnal dyspnea and Denies slow heart rate Resp Denies cough, Denies dyspnea and Denies dyspnea on exertion GI Denies abdominal pain, Denies change in bowel habits, Denies excessive flatus, Denies nausea and Denies vomiting Denies urinary incontinence, Denies urinary hesitancy and Denies urinary urgency Musc Denies abnormal gait, Denies atrophy, Denies deformity and Denies limited range of motion Skin/Breast Denies bleeding lesions, Denies changing lesions and Denies rash Neuro Denies abnormal gait and Denies lack of coordination Physical exam (Primary Care) Vital Signs: Last Vital Signs Pulse 68 12/18/24 07:32 BP 110/72 12/18/24 07:32 Pulse Ox 98 12/18/24 07:32 Oxygen Delivery Method Room Air 12/18/24 07:32 BMI result Body Mass Index 19.5 Tobacco/Smoking Status: Tobacco use Status Tobacco use date assessed 12/18/24 12/18/24 07:36 Patient Tobacco Use Status Never used Tobacco 12/18/24 07:36 e-Cigarette/Vaping Use Never Used 12/18/24 07:36 PHQ-9: PHQ-9 Score PHQ-9: Total score 0 12/18/24 07:36 Depression Screening Interpretation: Negative Thrive Assessment: Date of Thrive Assessment Date Thrive assessed 12/18/24 12/18/24 07:36 Currently or been in a relationship where the following occur: No concerns reported HENSC Head: Yes normal to inspection, Yes normocephalic and Yes atraumatic Ears: external ears normal Eyes General: appearance normal, both eyes and all related structures Eyelids: Yes eyelids normal Conjunctivae: conjunctivae normal Neck Neck: Yes normal visual inspection and Yes supple Resp Effort & Inspection: normal respiratory effort Auscultation: clear to auscultation bilaterally Cardio Jugular venous distension: no JVD Rate: regular rate Rhythm: regular rhythm Heart sounds: S1 normal heart sound present and S2 normal heart sound present GI Inspection: Yes normal to inspection Palpation (GI): Soft to palpation and nontender Auscultation: normal bowel sounds Skin General skin exam: no rashes or lesions noted Neuro General: no focal motor deficits Extrem General: Yes full ROM Psych Appearance: grossly normal Coding Level of Care Code Est Pt Prev Care 40-64y(81242) Diagnoses Physical exam Z00.00 Additional Codes PHQ-9 - 31479 - PHQ-9 Billing: Yes ([id number]) NESSA-7 Assessment Billing - NESSA-7 Assessment Tool: NESSA-7 Assessment 33445 ([id number]) Time Spent (min) 31 Assessment & Plan Assessment & Plan (1) Physical exam: Code(s): Z00.00 - Encounter for general adult medical examination without abnormal findings Category: Medical Plan The patient will need to schedule a colonoscopy as it has been over 10 years since the last one, and she is due for this preventative screening. She is advised to coordinate with gastroenterology for scheduling when she has time off. For osteoporosis, treatment options should be considered following the bone density test results from December 2022. The patient declined the Tdap vaccine, and this should be revisited in future visits to ensure up-to-date vaccinations. Orders: Orders Vitamin D 25-OH Total Today E55.9 - Vitamin D deficiency, unspecified Comprehensive [place]. Panel Fast Today Z00.00 - Encounter for general adult medical examination without abnormal findings Complete Blood Count Auto Diff Today D72.819 - Decreased white blood cell count, unspecified XR DEXA axial skeleton Today Z78.0 - Asymptomatic menopausal state Lipid Panel Today Z00.00 - Encounter for general adult medical examination without abnormal findings
== END 2024-12-18 07:52 | disposition home or self-care (01) ==
LOC: HO.HMCH 07:22
PROVIDERS: PCP Internal Medicine; Visit Provider Internal Medicine
DX: Z00.00 Encounter for general adult medical examination without abnormal findings (principal)

== ENCOUNTER 2024-12-18 07:21 | Outpatient (REF) | payer OTHER, SELFPAY ==
[2024-12-18 08:34] LABS: MANUAL DIFF FLAG NO
[2024-12-18 09:17] LABS: Hematocrit 42.2 % (37.0-47.0); Hemoglobin 13.9 g/dl (12.0-16.0); Imm Gran Abs Auto 0.01 X10*3/uL (0.00-0.03); Imm Gran Pct Auto 0.3 % (0.0-0.4); Lymphocytes Absolute Auto 1.2 X10*3/uL (1.2-4.9); Mean Corpuscular HGB Conc 32.9 g/dl (31.0-35.0); Mean Corpuscular Hemoglobin 28.8 pg (27.0-33.0); Mean Corpuscular Volume 87.4 fL (80.0-98.0); NRBC Abs Auto 0.000 X10*3/uL (0.0-0.012); NRBC Pct Auto 0.0 /100WBC (0.0-0.2); Platelet Count 220 X10*3/uL (160-400); Red Blood Count 4.83 X10*6/uL (4.20-5.50); White Blood Count 3.7 X10*3/uL (4.8-10.8)
[2024-12-18 09:35] LABS: Alanine Aminotransferase 28 U/L (0-31); Albumin Level 4.5 g/dL (3.5-5.0); Alkaline Phosphatase 81 U/L (39-117); Anion Gap 13 (12-20); Aspartate Amino Transferase 27 U/L (5-31); Blood Urea Nitrogen 13 mg/dL (9-16); Calcium 9.4 mg/dL (8.4-10.2); Carbon Dioxide 25 mmol/L (22-29); Chloride 104 mmol/L (96-108); Cholesterol 198 mg/dL (<200); Estimated Glomerular Filt Rate > 60; HDL Cholesterol 87 mg/dL (>40); Potassium 4.3 mmol/L (3.3-5.1); Sodium 138 mmol/L (135-145); Total Protein 7.0 g/dL (6.5-8.0); Triglycerides 42 mg/dL (<150)
== END 2024-12-18 07:22 | disposition home or self-care (01) ==
LOC: HO.LAB 07:21
PROVIDERS: PCP Internal Medicine; Visit Provider Internal Medicine
DX: Z00.00 Encounter for general adult medical examination without abnormal findings (principal); E55.9 Vitamin D deficiency, unspecified; D72.819 Decreased white blood cell count, unspecified
CPT/HCPCS: 36415; 80053; 80061; 82306; 85025; 96127